=== PATIENT | male | born 1970 | race African-American/Black ===

== ENCOUNTER 2017-09-25 18:51 | Inpatient (IN) ==
[2017-09-25] MEDS ORDERED: *HR* HYDROmorphone (PF) 1 MG/ML SYRINGE IVP ONE (19:02)
[2017-09-25] MEDS ORDERED: 0.9 % Sodium Chloride 1,000 ML IVC ONE (19:02)
[2017-09-25] MEDS ORDERED: Ondansetron 4 MG/2 ML VIAL IVP ONE (19:02)
[2017-09-25] MEDS ORDERED: 0.9 % Sodium Chloride 1,000 ML ONE (19:05)
[2017-09-25] MEDS ORDERED: Ondansetron 4 MG/2 ML VIAL ONE (19:05)
[2017-09-25] MEDS ORDERED: *HR* HYDROmorphone 2 MG/ML SYRINGE ONE (19:05)
--- NOTE | 2017-09-25 19:05 | Emergency Department Note ---
Disposition Clinical Impression: DKA (diabetic ketoacidoses) Qualifiers: Diabetes mellitus type: type 1 Diabetes mellitus complication detail: without coma Qualified Code(s): E10.10 - Type 1 diabetes mellitus with ketoacidosis without coma Disposition: Admitted As Inpatient Condition: Serious Referrals: NONE,PCP [Primary Care Provider] - Forms: ED Satisfaction Letter, Work/School Release Time of Disposition: 23:05 Abdominal Pain HPI - General Chief Complaint: ED Abdominal Pain Stated Complaint: upper abd pain, [place] Time Seen by Provider: 09/25/17 19:00 Source: patient Mode of arrival: ambulatory Limitations: no limitations Nursing Notes Reviewed: Yes Vital Signs Reviewed: Yes - History of Present Illness HPI Narrative: 46-year-old with a recent history of vomiting and severe right flank pain. States he's not able to keep anything down and when he eats or drinks anything and comes right back up. Pt Subjective Complaint: abdominal pain, flank pain Onset (ago): Just [employer] Consistency: constant Location: R flank Pain Severity: moderate, severe Pain Scale: 10 Quality: stabbing, aching Radiation: none Migration to: no migration Worsens with: eating Associated symptoms: Reports: nausea, vomiting. Denies: fever, chills - Related Data Home Medications Medication Instructions Recorded Confirmed Glyburide 09/05/17 Insulin. 09/05/17 Lamictal 09/05/17 Metformin HCl 09/05/17 Remeron 09/05/17 Vistaril 09/05/17 Zoloft 09/05/17 Previous Rx's Medication Instructions Recorded Clotrimazole [Itch Relief] 1 gm TP BID #15 cream..g. 09/05/17 Fluconazole [Diflucan] 150 mg PO Q3D #2 tab 09/05/17 Allergies Allergy/AdvReac Type Severity Reaction Status Date / Time No Known Allergies Allergy Verified 09/25/17 18:57 All systems ED: reviewed and negative except as stated. Constitutional: Denies: fever, chills, weakness, weight change Eyes: Denies: eye pain, eye discharge, vision change ENT ED: Denies: ear pain, throat pain, dental pain, hearing loss, epistaxis, congestion, dysphagia Cardiovascular: Denies: chest pain, palpitations, dyspnea on exertion, edema, syncope Respiratory: Denies: cough, dyspnea, wheezes, hemoptysis, stridor Gastrointestinal: Reports: abdominal pain, nausea, vomiting. Denies: diarrhea, constipation, hematemesis, melena, hematochezia Genitourinary: Denies: urgency, dysuria, frequency, hematuria Musculoskeletal: Denies: back pain, neck pain, arthralgia, myalgia Integumentary: Denies: rash, abrasion, lesions Neurological: Denies: headache, weakness, numbness, paresthesias, confusion, abnormal gait, vertigo Psychiatric: Denies: anxiety, depression, suicidal thoughts, homicidal thoughts , auditory hallucinations, visual hallucinations Endocrine: Denies: fatigue Hematological/Lymphatic: Denies: easy bleeding, easy bruising Allergic/Immunologic: Denies: facial swelling, urticaria Abdominal Pain PMH - Past Medical History Medical history: Reports: non-contributory, diabetes, other Male Surgical History: Reports: no surgical history Psychiatric history: Reports: anxiety, depression, panic disorder - Social History Smoking status: Current some day smoker Alcohol use: Reports: occasionally Drug use: Reports: none Physical Exam - General Limitations: no limitations General appearance: alert, in no apparent distress, anxious - Head Head exam: atraumatic, normocephalic, normal inspection - Eye Eye exam: Present: normal appearance, PERRL, EOMI - ENT ENT exam: normal exam, normal oropharynx, mucous membranes moist - Neck Neck exam: Present: normal inspection, full ROM, trachea midline - Chest Chest inspection: Present: normal inspection, symmetric chest wall rise - Respiratory Respiratory exam: Present: normal lung sounds bilaterally - Cardiovascular Cardiovascular exam: Present: regular rate, normal rhythm, normal heart sounds - Abdominal Exam Abdominal exam: Present: soft, Non-Tender, other (No right upper quadrant tenderness) - Extremities Exam Extremities exam: Present: normal inspection, full ROM. Absent: tenderness, pedal edema - Expanded Lower Extremity Exam Neurovascular/Tendon exam: Present: normal capillary refill - Back Exam Back exam: Present: normal inspection, full ROM. Absent: tenderness - Neurological Exam Neurological exam: Present: alert, oriented X3 - Psychiatric Psychiatric exam: Present: normal affect, normal mood - Skin Skin exam: Present: warm, dry, intact, normal color Course - Reevaluation(s) Reevaluation #1: A 46-year-old with a history of diabetes who comes in with nausea vomiting not able to keep anything down. Workup shows that he is in DKA. Patient will be admitted for further evaluation and treatment. Time: 23:05 - Consultations Consultation #1: Discussed with Dr. Garcia, admit. Time: 23:06 Vital Signs Temperature 96.9 F L 09/25/17 18:55 Pulse Rate 120 09/25/17 18:55 Respiratory Rate 24 09/25/17 18:55 Blood Pressure 145/89 09/25/17 18:55 O2 Sat by Pulse Oximetry 100 09/25/17 18:55 Temperature 96.9 F L 09/25/17 18:55 Pulse Rate 102 09/25/17 22:35 Respiratory Rate 22 09/25/17 22:35 Blood Pressure 156/83 09/25/17 22:35 O2 Sat by Pulse Oximetry 99 09/25/17 22:35 Oxygen Delivery Oxygen Delivery Room Air Abdominal Pain - Lab Data Result diagrams: 09/25/17 19:46 09/25/17 19:35 Lab Results 09/25/17 09/25/17 09/25/17 Range/Units 19:35 19:35 19:35 WBC (4.3-11.1) K/mcL RBC (4.19-5.50) M/mcL Hgb (12.9-16.9) g/dL Hct (37.5-50.1) % MCV (83.0-100.0) fL MCH (28.0-33.3) pg MCHC (31.6-35.5) g/dL RDW (11.5-14.5) % Plt Count (140-400) K/mcL MPV (9.4-12.4) fL Immature Gran % (0-4) % Seg Neutrophils % % Lymphocytes % % Monocytes % % Eosinophils % % Basophils % % Neutrophils # (1.6-8.9) K/mcL Lymphocytes # (0.6-4.6) K/mcL Monocytes # (0.0-1.3) K/mcL Eosinophils # (0.0-0.6) K/mcL Basophils # (0.0-0.2) K/mcL Sodium 128 L (136-145) mEq/L Potassium 5.3 H (3.5-5.1) mEq/L Chloride 93 L (98-107) mEq/L Carbon Dioxide 7 L* (23-29) mEq/L BUN 22 H (6-20) mg/dL Creatinine 2.06 H (0.70-1.30) mg/dL Est GFR ( Amer) 42 L (> 60) Est GFR (Non-Af Amer) 35 L (> 60) BUN/Creatinine Ratio 11 (6-26) Glucose 545 H* (70-105) mg/dL POC Glucose (58-89) Calculated Osmolality 294 (280-300) Lactic Acid (0.5-2.2) mmol/L Calcium 9.8 (8.6-10.3) mg/dL Total Bilirubin 0.5 (0.3-1.0) mg/dL Direct Bilirubin 0.1 (0.0-0.2) mg/dL Indirect Bilirubin 0.4 (0.0-1.2) mg/dL AST 9 L (13-39) Units/L ALT 11 (7-52) Units/L Alkaline Phosphatase 126 H (34-104) Units/L Troponin I < 0.03 (< 0.04) ng/mL Serum Total Protein 8.0 (6.4-8.9) g/dL Albumin 5.2 (3.5-5.7) g/dL Globulin 2.8 (2.4-3.5) g/dL Albumin/Globulin Ratio 1.9 (1.1-2.2) Amylase 55 (29-103) Units/L Lipase 94 H (11-82) Units/L Beta-Hydroxybutyric Acd > 2.00 H (0.02-0.27) mmol/L Urine Color (Yellow) Urine Clarity (Clear) Urine pH (5.0-8.0) pH Units Ur Specific [place] (1.010-1.025) Urine Protein (Neg-Trace) mg/dL Urine Glucose (UA) (Normal) mg/dL Urine Ketones (Negative) mg/dL Urine Blood (Negative) Urine Nitrite (Negative) Urine Bilirubin (Negative) Urine Urobilinogen (Normal) mg/dL Ur Leukocyte Esterase (Negative) Urine Microscopic WBC (0-3) per hpf Ur Squamous Epith Cells (None-Few) per lpf Amorphous Sediment (Few) Hyaline Casts (None-Few) per lpf Ur Culture Indicated? (NO) 09/25/17 09/25/17 09/25/17 Range/Units 19:46 19:46 19:56 WBC 20.5 H (4.3-11.1) K/mcL RBC 6.43 H (4.19-5.50) M/mcL Hgb 19.2 H (12.9-16.9) g/dL Hct 56.2 H (37.5-50.1) % MCV 87.4 (83.0-100.0) fL MCH 29.9 (28.0-33.3) pg MCHC 34.2 (31.6-35.5) g/dL RDW 12.2 (11.5-14.5) % Plt Count 441 H (140-400) K/mcL MPV 11.4 (9.4-12.4) fL Immature Gran % 0.6 (0-4) % Seg Neutrophils % 90.9 % Lymphocytes % 5.8 % Monocytes % 2.6 % Eosinophils % 0.0 % Basophils % 0.1 % Neutrophils # 18.6 H (1.6-8.9) K/mcL Lymphocytes # 1.2 (0.6-4.6) K/mcL Monocytes # 0.5 (0.0-1.3) K/mcL Eosinophils # 0.0 (0.0-0.6) K/mcL Basophils # 0.0 (0.0-0.2) K/mcL Sodium (136-145) mEq/L Potassium (3.5-5.1) mEq/L Chloride (98-107) mEq/L Carbon Dioxide (23-29) mEq/L BUN (6-20) mg/dL Creatinine (0.70-1.30) mg/dL Est GFR ( Amer) (> 60) Est GFR (Non-Af Amer) (> 60) BUN/Creatinine Ratio (6-26) Glucose (70-105) mg/dL POC Glucose 522 H* (58-89) Calculated Osmolality (280-300) Lactic Acid 3.2 H (0.5-2.2) mmol/L Calcium (8.6-10.3) mg/dL Total Bilirubin (0.3-1.0) mg/dL Direct Bilirubin (0.0-0.2) mg/dL Indirect Bilirubin (0.0-1.2) mg/dL AST (13-39) Units/L ALT (7-52) Units/L Alkaline Phosphatase (34-104) Units/L Troponin I (< 0.04) ng/mL Serum Total Protein (6.4-8.9) g/dL Albumin (3.5-5.7) g/dL Globulin (2.4-3.5) g/dL Albumin/Globulin Ratio (1.1-2.2) Amylase (29-103) Units/L Lipase (11-82) Units/L Beta-Hydroxybutyric Acd (0.02-0.27) mmol/L Urine Color (Yellow) Urine Clarity (Clear) Urine pH (5.0-8.0) pH Units Ur Specific [place] (1.010-1.025) Urine Protein (Neg-Trace) mg/dL Urine Glucose (UA) (Normal) mg/dL Urine Ketones (Negative) mg/dL Urine Blood (Negative) Urine Nitrite (Negative) Urine Bilirubin (Negative) Urine Urobilinogen (Normal) mg/dL Ur Leukocyte Esterase (Negative) Urine Microscopic WBC (0-3) per hpf Ur Squamous Epith Cells (None-Few) per lpf Amorphous Sediment (Few) Hyaline Casts (None-Few) per lpf Ur Culture Indicated? (NO) 09/25/17 09/25/17 09/25/17 Range/Units 19:57 21:08 22:21 WBC (4.3-11.1) K/mcL RBC (4.19-5.50) M/mcL Hgb (12.9-16.9) g/dL Hct (37.5-50.1) % MCV (83.0-100.0) fL MCH (28.0-33.3) pg MCHC (31.6-35.5) g/dL RDW (11.5-14.5) % Plt Count (140-400) K/mcL MPV (9.4-12.4) fL Immature Gran % (0-4) % Seg Neutrophils % % Lymphocytes % % Monocytes % % Eosinophils % % Basophils % % Neutrophils # (1.6-8.9) K/mcL Lymphocytes # (0.6-4.6) K/mcL Monocytes # (0.0-1.3) K/mcL Eosinophils # (0.0-0.6) K/mcL Basophils # (0.0-0.2) K/mcL Sodium (136-145) mEq/L Potassium (3.5-5.1) mEq/L Chloride (98-107) mEq/L Carbon Dioxide (23-29) mEq/L BUN (6-20) mg/dL Creatinine (0.70-1.30) mg/dL Est GFR ( Amer) (> 60) Est GFR (Non-Af Amer) (> 60) BUN/Creatinine Ratio (6-26) Glucose (70-105) mg/dL POC Glucose 534 H* 460 H* (58-89) Calculated Osmolality (280-300) Lactic Acid (0.5-2.2) mmol/L Calcium (8.6-10.3) mg/dL Total Bilirubin (0.3-1.0) mg/dL Direct Bilirubin (0.0-0.2) mg/dL Indirect Bilirubin (0.0-1.2) mg/dL AST (13-39) Units/L ALT (7-52) Units/L Alkaline Phosphatase (34-104) Units/L Troponin I (< 0.04) ng/mL Serum Total Protein (6.4-8.9) g/dL Albumin (3.5-5.7) g/dL Globulin (2.4-3.5) g/dL Albumin/Globulin Ratio (1.1-2.2) Amylase (29-103) Units/L Lipase (11-82) Units/L Beta-Hydroxybutyric Acd (0.02-0.27) mmol/L Urine Color Yellow (Yellow) Urine Clarity Clear (Clear) Urine pH 5.5 (5.0-8.0) pH Units Ur Specific [place] > 1.030 H (1.010-1.025) Urine Protein 30 H (Neg-Trace) mg/dL Urine Glucose (UA) >=1000 H (Normal) mg/dL Urine Ketones 80 H (Negative) mg/dL Urine Blood Trace H (Negative) Urine Nitrite Negative (Negative) Urine Bilirubin Negative (Negative) Urine Urobilinogen Normal (Normal) mg/dL Ur Leukocyte Esterase Negative (Negative) Urine Microscopic WBC 0-3 (0-3) per hpf Ur Squamous Epith Cells Few (None-Few) per lpf Amorphous Sediment Few (Few) Hyaline Casts Few (None-Few) per lpf Ur Culture Indicated? NO (NO) - EKG Data EKG attestation: Yes I reviewed and interpreted this EKG. EKG shows normal: sinus rhythm Rate: tachycardia (103) Rhythm: NSR Interpretation: no acute changes
[2017-09-25 19:55] LABS: Basophils % 0.1 %; Hemoglobin 19.2 g/dL (12.9-16.9); Immature Granulocytes % 0.6 % (0-4); Lymphocytes # 1.2 K/mcL (0.6-4.6); Lymphocytes % 5.8 %; Mean Corpuscular HGB Conc 34.2 g/dL (31.6-35.5); Mean Corpuscular Hemoglobin 29.9 pg (28.0-33.3); Mean Corpuscular Volume 87.4 fL (83.0-100.0); Mean Platelet Volume 11.4 fL (9.4-12.4); Monocytes # 0.5 K/mcL (0.0-1.3); Monocytes % 2.6 %; Neutrophils # 18.6 K/mcL (1.6-8.9); Platelet Count 441 K/mcL (140-400); Red Blood Count 6.43 M/mcL (4.19-5.50); Red Cell Distribution Width 12.2 % (11.5-14.5); Segmented Neutrophils % 90.9 %
[2017-09-25 20:06] LABS: Hematocrit 56.2 % (37.5-50.1)
[2017-09-25 20:24] LABS: Albumin 5.2 g/dL (3.5-5.7); Albumin/Globulin Ratio 1.9 (1.1-2.2); Bilirubin,Direct 0.1 mg/dL (0.0-0.2); Bilirubin,Indirect 0.4 mg/dL (0.0-1.2); Bilirubin,Total 0.5 mg/dL (0.3-1.0); Calcium 9.8 mg/dL (8.6-10.3); Globulin 2.8 g/dL (2.4-3.5); Potassium 5.3 mEq/L (3.5-5.1)
[2017-09-25] MEDS ORDERED: Insulin Human Regular 100 UNIT in 0.9 % Sodium Chloride 100 ML IVC SCH (20:45)
[2017-09-25] MEDS ORDERED: *HR* Dextrose 50 % in Water (Syg) 50 ML SYRINGE IVP PRN (20:45)
[2017-09-25 21:20] LABS: Bilirubin,Urine Negative (Negative); Blood,Urine Trace (Negative); Clarity,Urine Clear (Clear); Color,Urine Yellow (Yellow); Glucose,Urine (UA) >=1000 mg/dL (Normal); Ketones,Urine 80 mg/dL (Negative); Leukocyte Esterase,Urine Negative (Negative); Nitrite,Urine Negative (Negative); PH,Urine 5.5 pH Units (5.0-8.0); Protein,Urine 30 mg/dL (Neg-Trace); Specific Gravity,Urine > 1.030 (1.010-1.025); Urobilinogen,Urine Normal (Normal)
[2017-09-25 22:02] LABS: Hyaline Casts,Urine Few per lpf (None-Few); Squamous Epithelial Cell,Urine Few per lpf (None-Few)
[2017-09-25 22:03] LABS: Amorphous Sediment,Urine Few (Few); WBC,Urine 0-3 per hpf (0-3)
[2017-09-26] MEDS ORDERED: *HR* Morphine 2 MG/ML SYRINGE IVP PRN ×2 (00:18)
[2017-09-26] MEDS ORDERED: Ipratropium/Albuterol Neb 3 ML IH PRN (00:18)
[2017-09-26] MEDS ORDERED: Acetaminophen 325 MG TABLET PO PRN (00:18)
[2017-09-26] MEDS ORDERED: D5% in 0.45% NACL 1,000 ML IVC PRN (00:20)
[2017-09-26] MEDS ORDERED: Naloxone 0.4 MG/ML INJ IVP PRN (00:20)
[2017-09-26] MEDS ORDERED: Ondansetron 4 MG/2 ML VIAL IVP PRN (00:20)
[2017-09-26] MEDS ORDERED: 0.9 % Sodium Chloride 1,000 ML IVC SCH (00:30)
--- NOTE | 2017-09-26 00:33 | Internal Med History&Physical ---
Date of Encounter: 09/26/17 Time of Encounter: 00:30 Assessment and Plan (1) DKA (diabetic ketoacidoses) Current visit: Yes Status: Acute Severe diabetic ketoacidosis secondary to possibly acute bacterial bronchitis Start insulin drip, ordered venous pH, basic metabolic panels every 4 hours Aggressive hydration, switch to D5 with health normal saline and potassium once glucose is less than 200 Rocephin Protonix 40 GI prophylaxis and subcutaneous heparin for DVT prophylaxis. The patient will be admitted as inpatient, expected to stay more than 2 minutes. Full code. Time spent on this admission 40 minutes. High risk due to DKA Qualifiers: Diabetes mellitus type: type 1 Diabetes mellitus complication detail: without coma Qualified Code(s): E10.10 - Type 1 diabetes mellitus with ketoacidosis without coma (2) Acute renal failure Current visit: Yes Status: Acute Secondary to dehydration this Continue fluids Qualifiers: Acute renal failure type: unspecified Qualified Code(s): N17.9 - Acute kidney failure, unspecified (3) Dehydration Current visit: Yes Status: Acute (4) Acute bronchitis Current visit: Yes Status: Acute Likely bacterial Continue Rocephin Qualifiers: Bronchitis organism: unspecified organism Qualified Code(s): J20.9 - Acute bronchitis, unspecified (5) Tobacco abuse Current visit: Yes Status: Acute Smoking cessation counseling given for 5 minutes, nicotine patch (6) Hyponatremia Current visit: Yes Status: Acute Monitor sodium Internal Medicine - H&P: HPI Chief complaint: Abdominal pain History of present illness: Mr. Lawson is a 46 year old male with a past medical history of diabetes type 1 diagnosed 18 months ago, tobacco use, depression, came complaining of constant vomiting for the past 3 days, not been able to keep anything down. Complaining also of right flank pain. CT scan of the abdomen showed cholelithiasis with no obstruction and pulmonary nodules that need to be followed as an outpatient. Blood cell count is 20.5 heart rate 106 hemoglobin has increased up to 19.2 from a baseline of 15.3. Platelets 441. Patient has been complaining of severe heartburn 6 out of 10 in intensity with no radiation. Sodium is 128 potassium 5.3 CO2 7 anion gap 28, creatinine has increased to 2.06 from a baseline of 1.15. Glucose was 545. Very dehydrated, denies any fevers, or dysuria but complains of a constant cough with greenish phlegm, no sick contacts. Past Med Surg Social Fam HX - Past Medical History Medical history: diabetes (Type I diagnosed 18 months ago), hypertension, other (Panic disorder, tobacco abuse, skin fungal infection) Psychiatric history: anxiety, depression, panic disorder - Past Surgical History Surgical History: no surgical history - Social History Smoking Status: Current some day smoker Packs per day: One pack per day Smokeless Tobacco Status: No Alcohol use: occasionally Drug use: none - Additional Family History Additional family history: Mother with diabetes Internal Medicine - H&P: Meds Clotrimazole [Itch Relief] 1 gm TP BID #15 cream..g. 09/05/17 [Rx] Fluconazole [Diflucan] 150 mg PO Q3D #2 tab 09/05/17 [Rx] Glyburide 09/05/17 [History] Insulin. 09/05/17 [History] Lamictal 09/05/17 [History] Metformin HCl 09/05/17 [History] Remeron 09/05/17 [History] Vistaril 09/05/17 [History] Zoloft 09/05/17 [History] 3 Allergy/AdvReac Type Severity Reaction Status Date / Time No Known Allergies Allergy Verified 09/25/17 18:57 All Systems PM: A 10-system review of systems was performed and is negative for pertinent findings except as documented above in the HPI. Review of systems: Productive cough and weakness, other systems of the 10 review of her negative, no diarrhea - Constitutional Vitals: Temp Pulse Resp BP Pulse Ox 96.9 F L 106 18 142/58 98 09/25/17 18:55 09/25/17 23:48 09/26/17 00:15 09/26/17 00:15 09/25/17 23:48 General appearance: Present: A&O X 3 (Dehydration, dry mucosa) - Head Head exam: Present: atraumatic, normocephalic - Eye Eye exam: Present: PERRL, conjuntiva pink, sclera anicteric Pupils: Present: PERRL - Neck Neck exam general surgery: Present: supple, trachea midline. Absent: lymphadenopathy - Respiratory Respiratory exam: Present: CTAB. Absent: accessory muscle use, rales, rhonchi, wheezes - Cardiovascular Cardiovascular exam: Present: RRR, +S1, +S2, tachycardia. Absent: diastolic murmur, gallop, rubs, systolic murmur - GI/Abdominal GI/Abdominal exam: Present: normal bowel sounds, soft, no peritoneal signs. Absent: distended, tenderness - Extremities Exam Extremities exam: Present: warm, radial pulses palpable and symmetrical. Absent : calf tenderness, cyanotic, pedal edema - Neurological Exam Neurological exam: Present: CN II-XII intact, oriented X3, no focal deficits. Absent: pronater drift, facial droop, speech deficit - Skin Skin exam: Present: dry, intact Internal Med - H&P Results - Labs CBC & Chem 7: 09/25/17 19:46 09/25/17 19:35 Labs: Short CBC 09/25/17 Range/Units 19:46 WBC 20.5 H (4.3-11.1) K/mcL Hgb 19.2 H (12.9-16.9) g/dL Hct 56.2 H (37.5-50.1) % Plt Count 441 H (140-400) K/mcL Neutrophils # 18.6 H (1.6-8.9) K/mcL BMP 09/25/17 19:35 Sodium 128 L Potassium 5.3 H Chloride 93 L Carbon Dioxide 7 L* BUN 22 H Creatinine 2.06 H Glucose 545 H* Calcium 9.8 Cardiac Enzymes 09/25/17 Range/Units 19:35 Troponin I < 0.03 (< 0.04) ng/mL Liver Function 09/25/17 Range/Units 19:35 Total Bilirubin 0.5 (0.3-1.0) mg/dL Direct Bilirubin 0.1 (0.0-0.2) mg/dL AST 9 L (13-39) Units/L ALT 11 (7-52) Units/L Alkaline Phosphatase 126 H (34-104) Units/L Albumin 5.2 (3.5-5.7) g/dL Urine 09/25/17 Range/Units 21:08 Urine Color Yellow (Yellow) Urine Clarity Clear (Clear) Urine pH 5.5 (5.0-8.0) pH Units Ur Specific [place] > 1.030 H (1.010-1.025) Urine Protein 30 H (Neg-Trace) mg/dL Urine Glucose (UA) >=1000 H (Normal) mg/dL - Impressions ITS Impressions Abdomen/Pelvis CT 09/25/17 19:03 IMPRESSION: Cholelithiasis. Otherwise negative noncontrast study of the abdomen and pelvis. A few noncalcified bibasilar pulmonary nodules measuring up to 3 mm. RECOMMENDATIONS: Guidelines for follow-up and management of pulmonary nodules found on abdomen CT: <6 mm - No follow up recommend on the basis of the estimated low risk of malignancy. 6-8-mm - recommend follow-up chest CT after an appropriate interval (3-12 months depending on clinical risk). >8mm - immediate chest CT for further evaluation. Radiology 2017 http://pubs.rsna.org/doi/full/[email or web address] D/ / Barb Cheng Cha, MD / Barb Cheng Cha, MD Interpreting Provider: Barb Cheng Cha, MD Chest X-Ray 09/25/17 20:47 IMPRESSION: Negative portable study. D/ / Barb Cheng Cha, MD / Barb Cheng Cha, MD Interpreting Provider: Barb Cheng Cha, MD
[2017-09-26] MEDS ORDERED: cefTRIAXone 1,000 MG in Water for inj. (sterile) 10 ML IVPB SCH (01:00)
[2017-09-26 01:09] LABS: Hematocrit 53.1 % (37.5-50.1); Hemoglobin 18.2 g/dL (12.9-16.9); Mean Corpuscular HGB Conc 34.3 g/dL (31.6-35.5); Mean Corpuscular Volume 87.5 fL (83.0-100.0); Mean Platelet Volume 11.2 fL (9.4-12.4); Platelet Count 399 K/mcL (140-400); Red Blood Count 6.07 M/mcL (4.19-5.50); Red Cell Distribution Width 12.2 % (11.5-14.5)
[2017-09-26 01:17] LABS: VBG HCO3 10 mEq/L (21-27); VBG PCO2 29 mmHg (41-51); VBG PH 7.14 pH Units (7.32-7.42); VBG PO2 38 mmHg (25-50)
[2017-09-26 01:31] LABS: Calcium 8.6 mg/dL (8.6-10.3); Magnesium 2.1 mg/dL (1.6-2.6); Potassium 4.5 mEq/L (3.5-5.1)
[2017-09-26] MEDS: Pantoprazole 40 MG VIAL IVP SCH ×2 (02:18→10:58)
[2017-09-26] MEDS: Nicotine 21 MG PATCH.TD24 TD SCH ×2 (02:19→10:26)
[2017-09-26] MEDS: 0.9 % Sodium Chloride w KCl 20 MEQ/1,000 ML MLS IVC SCH ×2 (02:22→11:05)
[2017-09-26] MEDS: Insulin Human Regular 100 UNIT in 0.9 % Sodium Chloride 100 ML IVC SCH ×3 (03:20→16:17)
[2017-09-26 04:57] LABS: VBG HCO3 14 mEq/L (21-27); VBG PCO2 31 mmHg (41-51); VBG PH 7.26 pH Units (7.32-7.42); VBG PO2 53 mmHg (25-50)
[2017-09-26] MEDS: *HR* Heparin 5,000 UNIT/ML VIAL SQ SCH ×3 (05:12→20:49)
[2017-09-26] MEDS: D5% in 0.45% NACL w KCl 20 MEQ/1,000 ML MLS IVC PRN ×3 (05:12→11:05)
[2017-09-26 05:19] LABS: BUN/Creatinine Ratio 14 (6-26); Blood Urea Nitrogen 19 mg/dL (6-20); Calcium 8.8 mg/dL (8.6-10.3); Carbon Dioxide 14 mEq/L (23-29); Chloride 107 mEq/L (98-107); Glucose 179 mg/dL (70-105); Osmolality,Calculated 285 (280-300); Potassium 3.8 mEq/L (3.5-5.1); Sodium 134 mEq/L (136-145); eGFR For African Americans > 60 (> 60); eGFR For Non-African Americans 55 (> 60)
[2017-09-26] MEDS ORDERED: Insulin Human Regular 100 UNIT in 0.9 % Sodium Chloride 100 ML IVC SCH (08:15)
[2017-09-26 08:52] LABS: VBG HCO3 16 mEq/L (21-27); VBG PCO2 35 mmHg (41-51); VBG PH 7.27 pH Units (7.32-7.42); VBG PO2 54 mmHg (25-50)
[2017-09-26 08:58] LABS: BUN/Creatinine Ratio 13 (6-26); Blood Urea Nitrogen 17 mg/dL (6-20); Calcium 8.8 mg/dL (8.6-10.3); Carbon Dioxide 15 mEq/L (23-29); Chloride 104 mEq/L (98-107); Glucose 272 mg/dL (70-105); Osmolality,Calculated 281 (280-300); Potassium 3.8 mEq/L (3.5-5.1); Sodium 130 mEq/L (136-145); eGFR For African Americans > 60 (> 60); eGFR For Non-African Americans 60 (> 60)
[2017-09-26] MEDS ORDERED: FLUARIX QUAD 2017-18 36MOS UP/PF 0.5 ML SYRINGE IM ONE (09:00)
[2017-09-26] MEDS ORDERED: hydrOXYzine pamoate 25 MG CAPSULE PO PRN (14:00)
[2017-09-26 14:44] LABS: BUN/Creatinine Ratio 13 (6-26); Blood Urea Nitrogen 15 mg/dL (6-20); Calcium 8.7 mg/dL (8.6-10.3); Carbon Dioxide 17 mEq/L (23-29); Chloride 109 mEq/L (98-107); Glucose 90 mg/dL (70-105); Osmolality,Calculated 276 (280-300); Potassium 3.4 mEq/L (3.5-5.1); Sodium 133 mEq/L (136-145); eGFR For African Americans > 60 (> 60); eGFR For Non-African Americans > 60 (> 60)
[2017-09-26] MEDS ORDERED: *HR* Dextrose 50 % in Water (Syg) 50 ML SYRINGE IVP PRN (14:58)
[2017-09-26] MEDS ORDERED: Dextrose Gel 15 GM/37.5 ML TUBE PO PRN ×2 (14:58)
[2017-09-26] MEDS ORDERED: D5% in Water 1,000 ML IVC PRN (14:58)
[2017-09-26] MEDS: Insulin DETEMIR 100 UNIT/ML X5UNITS SQ SCH ×2 (16:23→20:49)
[2017-09-26] MEDS: Insulin LISPRO 300 UNITS/3 ML VIAL SQ SCH (16:25)
--- NOTE | 2017-09-26 19:12 | Event Note ---
Date of Encounter: 09/26/17 Time of Encounter: 11:00 DKA has resolved and patient has been started on long-acting insulin. Diet advance to clear liquids for pancreatitis
[2017-09-26] MEDS ORDERED: cefTRIAXone 1,000 MG in Water for inj. (sterile) 10 ML IVP SCH (21:00)
[2017-09-26] MEDS ORDERED: Insulin LISPRO 300 UNITS/3 ML VIAL SQ SCH (21:00)
[2017-09-26] MEDS ORDERED: Mirtazapine 15 MG TABLET PO SCH (21:00)
[2017-09-26] MEDS ORDERED: cefTRIAXone 1,000 MG in Water for inj. (sterile) 20 ML 10 ML IVP SCH (22:00)
[2017-09-27] MEDS: *HR* Heparin 5,000 UNIT/ML VIAL SQ SCH ×2 (06:25→13:53)
[2017-09-27] MEDS: Nicotine 21 MG PATCH.TD24 TD SCH (07:54)
[2017-09-27] MEDS: Pantoprazole 40 MG VIAL IVP SCH (07:54)
[2017-09-27] MEDS: Insulin LISPRO 300 UNITS/3 ML VIAL SQ SCH ×3 (07:56→17:31)
[2017-09-27] MEDS ORDERED: lamoTRIgine 100 MG TABLET PO SCH (09:00)
[2017-09-27] MEDS: Insulin DETEMIR 100 UNIT/ML X5UNITS SQ SCH (09:43)
[2017-09-27 09:50] LABS: Basophils # 0.1 K/mcL (0.0-0.2); Basophils % 0.4 %; Eosinophils # 0.2 K/mcL (0.0-0.6); Eosinophils % 1.6 %; Hematocrit 46.1 % (37.5-50.1); Immature Granulocytes % 0.2 % (0-4); Lymphocytes # 4.3 K/mcL (0.6-4.6); Lymphocytes % 34.3 %; Mean Corpuscular HGB Conc 34.9 g/dL (31.6-35.5); Mean Corpuscular Hemoglobin 29.5 pg (28.0-33.3); Mean Corpuscular Volume 84.6 fL (83.0-100.0); Mean Platelet Volume 11.4 fL (9.4-12.4); Monocytes # 0.8 K/mcL (0.0-1.3); Monocytes % 6.4 %; Neutrophils # 7.2 K/mcL (1.6-8.9); Platelet Count 336 K/mcL (140-400); Red Blood Count 5.45 M/mcL (4.19-5.50); Red Cell Distribution Width 12.6 % (11.5-14.5); Segmented Neutrophils % 57.1 %
[2017-09-27] MEDS ORDERED: Mag Hydrox/Al Hydrox/Simeth 30 ML UDC PO PRN (09:56)
--- NOTE | 2017-09-27 10:25 | Electrocardiograph Report ---
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
[2017-09-27 10:27] LABS: Hemoglobin 16.1 g/dL (12.9-16.9)
[2017-09-27 11:06] LABS: BUN/Creatinine Ratio 9 (6-26); Blood Urea Nitrogen 11 mg/dL (6-20); Calcium 9.1 mg/dL (8.6-10.3); Carbon Dioxide 20 mEq/L (23-29); Chloride 102 mEq/L (98-107); Glucose 338 mg/dL (70-105); Osmolality,Calculated 285 (280-300); Potassium 3.8 mEq/L (3.5-5.1); Sodium 131 mEq/L (136-145); eGFR For African Americans > 60 (> 60); eGFR For Non-African Americans > 60 (> 60)
--- NOTE | 2017-09-27 15:17 | Discharge Summary ---
Date of Encounter: 09/27/17 Time of Encounter: 11:00 - Discharge Diagnosis (1) DKA (diabetic ketoacidoses) Priority: Primary Status: Acute Qualifiers: Diabetes mellitus type: type 1 Diabetes mellitus complication detail: without coma Qualified Code(s): E10.10 - Type 1 diabetes mellitus with ketoacidosis without coma (2) Acute renal failure Priority: Secondary Status: Acute Qualifiers: Acute renal failure type: unspecified Qualified Code(s): N17.9 - Acute kidney failure, unspecified - Discharge Medications Prescriptions: Glimepiride [Amaryl] 1 mg PO DAILY #30 tablet Insulin DETEMIR [Levemir] 10 unit SQ BID #30 [id number] Insulin Human Regular [HumuLIN R] 10 unit SQ BID #30 vial metFORMIN [Glucophage] 500 mg PO BIDWM #60 tablet Home Medications: HydrOXYzine Pamoate [Vistaril] 50 mg PO Q6H PRN 09/26/17 [History] Mirtazapine [Remeron] 15 mg PO HS 09/26/17 [History] Sertraline [Zoloft] 100 mg PO DAILY 09/26/17 [History] lamoTRIgine [Lamotrigine] 200 mg PO DAILY 09/26/17 [History] Glimepiride [Amaryl] 1 mg PO DAILY #30 tablet 09/27/17 [Rx] Insulin DETEMIR [Levemir] 10 unit SQ BID #30 [id number] 09/27/17 [Rx] Insulin Human Regular [HumuLIN R] 10 unit SQ BID #30 vial 09/27/17 [Rx] metFORMIN [Glucophage] 500 mg PO BIDWM #60 tablet 09/27/17 [Rx] Allergies/Adverse Reactions: 3 Allergy/AdvReac Type Severity Reaction Status Date / Time No Known Allergies Allergy Verified 09/25/17 18:57 Date of admission: 09/26/17 00:32 Primary care physician: PCP NONE Consults: 09/26/17 10:44 Consult to Gum Machine Operator [CONS] Routine Reason for SW Consult: DC PLANNING. HOMELESS. NEEDS DIABETIC MEDICATIONS AND SUPPLIES. - Patient Status Disposition: Home, Self-Care Condition: Serious - Discharge Instructions Instructions: Diabetes Mellitus Type 2 in Adults (DC) Follow Up With: NONE,PCP [Primary Care Provider] - Hospital course: Patient is a 46-year-old male with past medical history significant for diabetes type 1 diagnosed 18 months ago, tobacco use and depression who presented to the ER on 09/26/17 with nausea/vomiting. Patient reported of constant nausea and vomiting and not being able to keep by mouth down so he decided to come to the ER for evaluation. In the ER, was found to be in DKA in addition to having XIAO. He was admitted for further medical management of DKA. During patients hospital stay, his DKA resolved on insulin drip which was discontinued after starting long-acting insulin. Patient's XIAO also resolved with IV fluids. Patient will be discharged to follow-up with a repeat chest CT in approximate 4- 6 weeks in addition to follow-up with primary care provider. - Time Spent with Patient Total time spent providing and/or coordinating discharge services: Less than 30 minutes - Constitutional Vitals: Temp Pulse Resp BP Pulse Ox 98.3 F 78 18 119/69 97 09/27/17 11:28 09/27/17 11:28 09/27/17 11:28 09/27/17 11:28 09/27/17 11:28 General appearance: Present: A&O X 3 (Dehydration, dry mucosa) - Respiratory Respiratory exam: Present: CTAB. Absent: accessory muscle use, rales, rhonchi, wheezes - Cardiovascular Cardiovascular exam: Present: RRR, +S1, +S2. Absent: diastolic murmur, gallop, rubs, systolic murmur
[2017-09-27 17:08] VITALS: BP 127/82
== END 2017-09-27 20:16 | disposition home or self-care (01) | DRG 420 ==
LOC: EMEROO 18:51 → 2NNU 18:51 → SUATTDRO 09-26 00:32 → 2NNU 09-26 00:51
PROVIDERS: ADMIT Internal Medicine; ATTEND Hospitalist

== ENCOUNTER 2020-01-24 17:42 | Observation (INO) ==
[2020-01-24] MEDS ORDERED: 0.9 % Sodium Chloride 1,000 ML IVC ONE ×2 (19:16→23:32)
[2020-01-24] MEDS ORDERED: Morphine Sulfate 2 MG/ML SYRINGE IVP ONE (19:16)
[2020-01-24] MEDS ORDERED: Piperacillin/Tazobactam 3.375 GM in Water for inj. (sterile) 20 ML IVP ONE (19:17)
[2020-01-24] MEDS ORDERED: Vancomycin 1,500 MG/265 ML IV.SOLN IVPB ONE (19:17)
[2020-01-24] MEDS ORDERED: Isovue-370 500 ML BOTTLE IVP ONE (19:51)
[2020-01-24 19:52] LABS: Basophils # 0.1 K/mcL (0.0-0.2); Basophils % 0.4 %; Eosinophils # 0.4 K/mcL (0.0-0.6); Hematocrit 44.7 % (37.5-50.1); Hemoglobin 14.8 g/dL (12.9-16.9); Immature Granulocytes % 0.4 % (0-4); Lymphocytes # 3.8 K/mcL (0.6-4.6); Lymphocytes % 20.6 %; Mean Corpuscular HGB Conc 33.1 g/dL (31.6-35.5); Mean Corpuscular Hemoglobin 30.3 pg (28.0-33.3); Mean Corpuscular Volume 91.4 fL (83.0-100.0); Monocytes # 1.2 K/mcL (0.0-1.3); Monocytes % 6.3 %; Neutrophils # 12.9 K/mcL (1.6-8.9); Platelet Count 448 K/mcL (140-400); Red Blood Count 4.89 M/mcL (4.19-5.50); Red Cell Distribution Width 12.5 % (11.5-14.5); Segmented Neutrophils % 70.3 %; White Blood Count 18.4 K/mcL (4.3-11.1)
[2020-01-24 19:56] LABS: INR 1.1; Prothrombin Time 12.6 Seconds (9.4-12.1)
[2020-01-24 20:10] LABS: BUN/Creatinine Ratio 9 (6-26); Blood Urea Nitrogen 11 mg/dL (6-20); Calcium 10.2 mg/dL (8.6-10.3); Carbon Dioxide 30 mEq/L (23-29); Chloride 105 mEq/L (98-107); Glucose 122 mg/dL (70-105); Osmolality,Calculated 295 (280-300); Potassium 4.3 mEq/L (3.5-5.1); Sodium 142 mEq/L (136-145); eGFR For African Americans > 60 (> 60); eGFR For Non-African Americans > 60 (> 60)
[2020-01-24] MEDS ORDERED: *HR* HYDROmorphone (PF) 1 MG/ML SYRINGE IVP ONE (20:28)
[2020-01-24] MEDS ORDERED: Ketorolac 15 MG/ML VIAL IVP ONE (20:28)
[2020-01-24] MEDS ORDERED: Nicotine 21 MG PATCH.TD24 TD ONE (21:24)
[2020-01-24] MEDS ORDERED: Naloxone 0.4 MG/ML INJ IVP PRN (23:28)
[2020-01-24] MEDS ORDERED: Ketorolac 30 MG/ML VIAL IVP PRN (23:31)
[2020-01-25] MEDS: Piperacillin/Tazobactam 3.375 GM in 0.9 % Sodium Chloride Mini Bag 100 ML IVPB SCH ×3 (04:31→21:06)
[2020-01-25] MEDS: *HR* Enoxaparin 40 MG/0.4 ML SYRINGE SQ SCH (06:37)
[2020-01-25] MEDS: Vancomycin 1,250 MG/262.5 ML IV.SOLN IVPB SCH ×2 (07:30→19:51)
[2020-01-25] MEDS: lamoTRIgine 100 MG TABLET PO SCH (08:23)
[2020-01-25] MEDS: lisinopriL 20 MG TABLET PO SCH (08:24)
[2020-01-25] MEDS: Divalproex (12 HR) 500 MG TABLET PO SCH ×2 (08:24→21:04)
[2020-01-25] MEDS: Insulin LISPRO 300 UNITS/3 ML VIAL SQ SCH ×4 (08:24→16:34)
[2020-01-25] MEDS: Aspirin Enteric Coated 81 MG Tablet PO SCH (08:24)
[2020-01-25] MEDS: Nicotine 21 MG PATCH.TD24 TD SCH (08:24)
[2020-01-25 09:38] LABS: Basophils # 0.1 K/mcL (0.0-0.2); Basophils % 0.5 %; Eosinophils # 0.4 K/mcL (0.0-0.6); Eosinophils % 2.9 %; Hematocrit 39.2 % (37.5-50.1); Immature Granulocytes % 0.2 % (0-4); Lymphocytes % 23.4 %; Mean Corpuscular HGB Conc 32.9 g/dL (31.6-35.5); Mean Corpuscular Hemoglobin 30.1 pg (28.0-33.3); Mean Corpuscular Volume 91.4 fL (83.0-100.0); Mean Platelet Volume 9.9 fL (9.4-12.4); Monocytes # 0.8 K/mcL (0.0-1.3); Monocytes % 5.9 %; Neutrophils # 8.6 K/mcL (1.6-8.9); Platelet Count 396 K/mcL (140-400); Red Blood Count 4.29 M/mcL (4.19-5.50); Red Cell Distribution Width 12.6 % (11.5-14.5); Segmented Neutrophils % 67.1 %; White Blood Count 12.9 K/mcL (4.3-11.1)
[2020-01-25 09:44] LABS: Hemoglobin 12.9 g/dL (12.9-16.9)
[2020-01-25 09:55] LABS: BUN/Creatinine Ratio 10 (6-26); Blood Urea Nitrogen 12 mg/dL (6-20); Calcium 8.6 mg/dL (8.6-10.3); Carbon Dioxide 26 mEq/L (23-29); Chloride 109 mEq/L (98-107); Glucose 183 mg/dL (70-105); Osmolality,Calculated 290 (280-300); Potassium 3.9 mEq/L (3.5-5.1); Sodium 138 mEq/L (136-145); eGFR For African Americans > 60 (> 60); eGFR For Non-African Americans > 60 (> 60)
[2020-01-25] MEDS: Ketorolac 30 MG/ML VIAL IVP PRN (10:48)
[2020-01-25 11:54] LABS: Estimated Average Glucose 217 mg/dl
[2020-01-25] MEDS: Acetaminophen 325 MG TABLET PO SCH ×2 (12:48→18:24)
[2020-01-25] MEDS ORDERED: *HR* Dextrose 50 % in Water (Syg) 50 ML SYRINGE IVP PRN (12:55)
[2020-01-25] MEDS ORDERED: Dextrose Gel 15 GM/37.5 ML TUBE PO PRN ×2 (12:55)
[2020-01-25] MEDS ORDERED: D5% in Water 1,000 ML IVC PRN (12:55)
[2020-01-25] MEDS: Insulin NPH 100 UNIT/ML (x5UNIT) SQ SCH (21:07)
[2020-01-26] MEDS: Acetaminophen 325 MG TABLET PO SCH ×5 (00:07→23:35)
[2020-01-26] MEDS: Piperacillin/Tazobactam 3.375 GM in 0.9 % Sodium Chloride Mini Bag 100 ML IVPB SCH (04:14)
[2020-01-26] MEDS: Vancomycin 1,250 MG/262.5 ML IV.SOLN IVPB SCH (06:18)
[2020-01-26] MEDS: *HR* Enoxaparin 40 MG/0.4 ML SYRINGE SQ SCH (06:18)
[2020-01-26 06:45] LABS: Basophils # 0.1 K/mcL (0.0-0.2); Basophils % 0.6 %; Eosinophils # 0.5 K/mcL (0.0-0.6); Eosinophils % 4.3 %; Hematocrit 40.9 % (37.5-50.1); Hemoglobin 13.4 g/dL (12.9-16.9); Immature Granulocytes % 0.3 % (0-4); Lymphocytes # 3.9 K/mcL (0.6-4.6); Lymphocytes % 35.3 %; Mean Corpuscular HGB Conc 32.8 g/dL (31.6-35.5); Mean Corpuscular Hemoglobin 30.5 pg (28.0-33.3); Mean Platelet Volume 10.1 fL (9.4-12.4); Monocytes # 0.6 K/mcL (0.0-1.3); Monocytes % 5.6 %; Neutrophils # 5.9 K/mcL (1.6-8.9); Platelet Count 432 K/mcL (140-400); Red Cell Distribution Width 12.6 % (11.5-14.5); Segmented Neutrophils % 53.9 %
[2020-01-26 07:03] LABS: BUN/Creatinine Ratio 12 (6-26); Blood Urea Nitrogen 13 mg/dL (6-20); Calcium 9.1 mg/dL (8.6-10.3); Carbon Dioxide 29 mEq/L (23-29); Chloride 105 mEq/L (98-107); Glucose 150 mg/dL (70-105); Osmolality,Calculated 291 (280-300); Potassium 4.7 mEq/L (3.5-5.1); Sodium 139 mEq/L (136-145); eGFR For African Americans > 60 (> 60); eGFR For Non-African Americans > 60 (> 60)
[2020-01-26] MEDS: Insulin LISPRO 300 UNITS/3 ML VIAL SQ SCH ×6 (07:54→17:39)
[2020-01-26] MEDS: Nicotine 21 MG PATCH.TD24 TD SCH (07:54)
[2020-01-26] MEDS: Aspirin Enteric Coated 81 MG Tablet PO SCH (07:55)
[2020-01-26] MEDS: lamoTRIgine 100 MG TABLET PO SCH (07:55)
[2020-01-26] MEDS: lisinopriL 20 MG TABLET PO SCH (07:55)
[2020-01-26] MEDS: Divalproex (12 HR) 500 MG TABLET PO SCH ×2 (07:55→20:30)
[2020-01-26] MEDS ORDERED: Vancomycin 500 MG in 0.9 % Sodium Chloride Mini Bag 100 ML IVPB ONE (08:22)
[2020-01-26] MEDS ORDERED: Morphine Sulfate 2 MG/ML SYRINGE IVP PRN (14:27)
[2020-01-26] MEDS: Ketorolac 30 MG/ML VIAL IVP PRN ×2 (16:34→22:59)
[2020-01-26] MEDS: Vancomycin 1,500 MG/265 ML IV.SOLN IVPB SCH (17:43)
[2020-01-26] MEDS: Insulin NPH 100 UNIT/ML (x5UNIT) SQ SCH (20:22)
[2020-01-27] MEDS: Acetaminophen 325 MG TABLET PO SCH ×2 (05:39→11:33)
[2020-01-27] MEDS: *HR* Enoxaparin 40 MG/0.4 ML SYRINGE SQ SCH (05:49)
[2020-01-27] MEDS: Vancomycin 1,500 MG/265 ML IV.SOLN IVPB SCH (05:50)
[2020-01-27] MEDS: Ketorolac 30 MG/ML VIAL IVP PRN (05:51)
[2020-01-27] MEDS: Insulin LISPRO 300 UNITS/3 ML VIAL SQ SCH ×4 (07:44→11:32)
[2020-01-27] MEDS: lisinopriL 20 MG TABLET PO SCH (08:10)
[2020-01-27] MEDS: lamoTRIgine 100 MG TABLET PO SCH (08:10)
[2020-01-27] MEDS: Aspirin Enteric Coated 81 MG Tablet PO SCH (08:10)
[2020-01-27] MEDS: Divalproex (12 HR) 500 MG TABLET PO SCH (08:10)
[2020-01-27] MEDS: Nicotine 21 MG PATCH.TD24 TD SCH (08:10)
[2020-01-27 09:01] LABS: Basophils # 0.1 K/mcL (0.0-0.2); Basophils % 0.8 %; Eosinophils # 0.5 K/mcL (0.0-0.6); Eosinophils % 6.1 %; Hematocrit 40.6 % (37.5-50.1); Hemoglobin 13.3 g/dL (12.9-16.9); Immature Granulocytes % 0.3 % (0-4); Lymphocytes # 3.7 K/mcL (0.6-4.6); Lymphocytes % 47.6 %; Mean Corpuscular HGB Conc 32.8 g/dL (31.6-35.5); Mean Corpuscular Hemoglobin 30.2 pg (28.0-33.3); Mean Corpuscular Volume 92.3 fL (83.0-100.0); Monocytes # 0.4 K/mcL (0.0-1.3); Neutrophils # 3.2 K/mcL (1.6-8.9); Platelet Count 444 K/mcL (140-400); Red Cell Distribution Width 12.4 % (11.5-14.5); Segmented Neutrophils % 40.2 %; White Blood Count 7.8 K/mcL (4.3-11.1)
[2020-01-27 09:06] LABS: INR 1.1
[2020-01-27 09:09] LABS: BUN/Creatinine Ratio 11 (6-26); Blood Urea Nitrogen 12 mg/dL (6-20); Calcium 9.1 mg/dL (8.6-10.3); Carbon Dioxide 32 mEq/L (23-29); Chloride 104 mEq/L (98-107); Glucose 143 mg/dL (70-105); Osmolality,Calculated 294 (280-300); Potassium 4.2 mEq/L (3.5-5.1); Sodium 141 mEq/L (136-145); eGFR For African Americans > 60 (> 60); eGFR For Non-African Americans > 60 (> 60)
[2020-01-27 10:53] VITALS: BP 152/88
== END 2020-01-27 12:55 | disposition home or self-care (01) ==
LOC: EMEROOARM 17:42 → 3ANU 17:42 → SUATTDRO 21:50 → 3ANU 22:56
PROVIDERS: ADMIT Internal Medicine; ATTEND Internal Medicine

== ENCOUNTER 2021-04-11 16:03 | Observation (INO) ==
[2021-04-11 16:34] LABS: Basophils % 0.3 %; Eosinophils # 0.2 K/mcL (0.0-0.6); Eosinophils % 1.7 %; Hematocrit 46.5 % (37.5-50.1); Hemoglobin 16.1 g/dL (12.9-16.9); Immature Granulocytes % 0.2 % (0-4); Lymphocytes # 2.2 K/mcL (0.6-4.6); Lymphocytes % 17.2 %; Mean Corpuscular HGB Conc 34.6 g/dL (31.6-35.5); Mean Corpuscular Hemoglobin 31.3 pg (28.0-33.3); Mean Corpuscular Volume 90.3 fL (83.0-100.0); Mean Platelet Volume 10.9 fL (9.4-12.4); Monocytes # 0.5 K/mcL (0.0-1.3); Monocytes % 4.2 %; Neutrophils # 9.9 K/mcL (1.6-8.9); Platelet Count 449 K/mcL (140-400); Red Blood Count 5.15 M/mcL (4.19-5.50); Red Cell Distribution Width 11.9 % (11.5-14.5); Segmented Neutrophils % 76.4 %
[2021-04-11 16:36] LABS: Bilirubin,Urine Negative (Negative); Blood,Urine Negative (Negative); Clarity,Urine Clear (Clear); Color,Urine Colorless (Yellow); Glucose,Urine (UA) >=1000 mg/dL (Normal); Ketones,Urine 40 mg/dL (Negative); Leukocyte Esterase,Urine Negative (Negative); Nitrite,Urine Negative (Negative); PH,Urine 6.5 pH Units (5.0-8.0); Protein,Urine Negative (Neg-Trace); Specific Gravity,Urine > 1.030 (1.010-1.025); Urobilinogen,Urine Normal (Normal); WBC,Urine 0-3 per hpf (0-3)
[2021-04-11 16:49] LABS: Amphetamine Screen,Urine Negative ng/mL (Cutoff=1000); Barbiturate Screen,Urine Negative ng/mL (Cutoff=200); Benzodiazepines Screen,Urine Negative ng/mL (Cutoff=200); Cannabinoid Screen,Urine Negative ng/mL (Cutoff = 50); Cocaine Screen,Urine Positive ng/mL (Cutoff= 300); Opiate Screen,Urine Negative ng/mL (Cutoff=300); Phencyclidine Screen,Urine Negative ng/mL (Cutoff=25)
[2021-04-11 17:01] LABS: Acetaminophen < 10 mcg/mL (10-20); BUN/Creatinine Ratio 12 (6-26); Blood Urea Nitrogen 12 mg/dL (6-20); Carbon Dioxide 24 mEq/L (23-29); Chloride 93 mEq/L (98-107); Chol/HDL Ratio 4.4 (0-4.9); Cholesterol 145 mg/dL (< 200); Ethanol < 10 mg/dL (Less than 10); Glucose 713 mg/dL (70-105); HDL Cholesterol 33 mg/dL (40-59); LDL Cholesterol,Calculated 67 mg/dL (< 100); Osmolality,Calculated 296 (280-300); Potassium 4.9 mEq/L (3.5-5.1); Salicylate < 2.5 mg/dL (15.0-30.0); Sodium 126 mEq/L (136-145); Triglycerides 227 mg/dL (< 150); eGFR For African Americans > 60 (> 60); eGFR For Non-African Americans > 60 (> 60)
[2021-04-11] MEDS ORDERED: 0.9 % Sodium Chloride 2,000 ML ONE (17:08)
[2021-04-11] MEDS: 0.9 % Sodium Chloride 1,000 ML IVC SCH (17:17)
[2021-04-11] MEDS ORDERED: Insulin Human Regular 7 UNIT in 0.9 % Sodium Chloride 10 ML IV ONE (17:21)
[2021-04-11] MEDS ORDERED: *HR* Dextrose 50 % in Water (Vial) 50 ML VIAL IVP PRN ×2 (17:22→17:51)
[2021-04-11] MEDS ORDERED: D5% in 0.45% NACL 1,000 ML IVC PRN (17:51)
[2021-04-11] MEDS ORDERED: Insulin Regular, Human 100 UNIT/ML IV PRN (17:51)
[2021-04-11] MEDS ORDERED: D5% in 0.45% NACL w KCl 20 MEQ/1,000 ML MLS IVC PRN (17:51)
[2021-04-11 17:59] LABS: VBG HCO3 28 mEq/L (21-27); VBG PCO2 48 mmHg (41-51); VBG PH 7.38 pH Units (7.32-7.42); VBG PO2 109 mmHg (25-50)
[2021-04-11] MEDS ORDERED: Acetaminophen 325 MG TABLET PO PRN (18:01)
[2021-04-11] MEDS ORDERED: Naloxone 0.4 MG/ML INJ IVP PRN (18:01)
[2021-04-11] MEDS ORDERED: MOM Conc 10 ML UD.LIQ PO PRN (18:01)
[2021-04-11] MEDS ORDERED: Melatonin 3 MG TABLET PO PRN (18:01)
[2021-04-11] MEDS ORDERED: Ondansetron 4 MG/2 ML VIAL IVP PRN (18:01)
[2021-04-11] MEDS ORDERED: Mag Hydrox/Al Hydrox/Simeth 30 ML UDC PO PRN (18:01)
[2021-04-11] MEDS: Azithromycin 500 MG in 0.9 % Sodium Chloride 250 ML IVPB SCH (18:40)
[2021-04-11] MEDS: cefTRIAXone 1,000 MG in 0.9 % Sodium Chloride Mini Bag 100 ML IVPB SCH (18:45)
[2021-04-11 19:31] LABS: Estimated Average Glucose 401 mg/dl; Hemoglobin A1C 15.6 %
[2021-04-11] MEDS: 0.45 % Sodium Chloride w/KCl 20 MEQ/1,000 ML MLS IVC SCH (20:21)
[2021-04-11] MEDS: Nicotine 21 MG PATCH.TD24 TD SCH (21:34)
[2021-04-11 23:36] LABS: BUN/Creatinine Ratio 13 (6-26); Blood Urea Nitrogen 11 mg/dL (6-20); Calcium 8.4 mg/dL (8.6-10.3); Carbon Dioxide 23 mEq/L (23-29); Chloride 105 mEq/L (98-107); Glucose 68 mg/dL (70-105); Osmolality,Calculated 278 (280-300); Potassium 3.8 mEq/L (3.5-5.1); Sodium 135 mEq/L (136-145); eGFR For African Americans > 60 (> 60); eGFR For Non-African Americans > 60 (> 60)
[2021-04-11] MEDS ORDERED: D5% in Water 1,000 ML IVC PRN (23:46)
[2021-04-11] MEDS ORDERED: Dextrose Gel 15 GM/37.5 ML TUBE PO PRN ×2 (23:46)
[2021-04-12] MEDS ORDERED: Insulin DETEMIR 100 UNIT/ML X5UNITS SUBQ SCH (01:00)
[2021-04-12 03:24] LABS: Basophils # 0.1 K/mcL (0.0-0.2); Basophils % 0.4 %; Eosinophils # 0.2 K/mcL (0.0-0.6); Eosinophils % 1.7 %; Hematocrit 40.1 % (37.5-50.1); Immature Granulocytes % 0.3 % (0-4); Lymphocytes # 3.3 K/mcL (0.6-4.6); Lymphocytes % 25.7 %; Mean Corpuscular HGB Conc 33.7 g/dL (31.6-35.5); Mean Corpuscular Hemoglobin 30.5 pg (28.0-33.3); Mean Corpuscular Volume 90.5 fL (83.0-100.0); Mean Platelet Volume 11.1 fL (9.4-12.4); Monocytes # 0.5 K/mcL (0.0-1.3); Monocytes % 3.6 %; Neutrophils # 8.8 K/mcL (1.6-8.9); Platelet Count 381 K/mcL (140-400); Red Blood Count 4.43 M/mcL (4.19-5.50); Red Cell Distribution Width 11.9 % (11.5-14.5); Segmented Neutrophils % 68.3 %; White Blood Count 12.9 K/mcL (4.3-11.1)
[2021-04-12 03:26] LABS: Hemoglobin 13.5 g/dL (12.9-16.9)
[2021-04-12 03:46] LABS: BUN/Creatinine Ratio 13 (6-26); Blood Urea Nitrogen 11 mg/dL (6-20); Calcium 8.1 mg/dL (8.6-10.3); Carbon Dioxide 24 mEq/L (23-29); Chloride 101 mEq/L (98-107); Glucose 374 mg/dL (70-105); Osmolality,Calculated 291 (280-300); Potassium 3.8 mEq/L (3.5-5.1); Sodium 133 mEq/L (136-145); eGFR For African Americans > 60 (> 60); eGFR For Non-African Americans > 60 (> 60)
[2021-04-12 03:47] LABS: Magnesium 1.7 mg/dL (1.6-2.6); Phosphorous 3.2 mg/dL (2.7-4.5)
[2021-04-12 09:25] LABS: BUN/Creatinine Ratio 11 (6-26); Blood Urea Nitrogen 10 mg/dL (6-20); Calcium 8.6 mg/dL (8.6-10.3); Carbon Dioxide 26 mEq/L (23-29); Chloride 101 mEq/L (98-107); Glucose 422 mg/dL (70-105); Osmolality,Calculated 291 (280-300); Potassium 4.1 mEq/L (3.5-5.1); Sodium 132 mEq/L (136-145); eGFR For African Americans > 60 (> 60); eGFR For Non-African Americans > 60 (> 60)
[2021-04-12] MEDS: Insulin LISPRO 300 UNITS/3 ML VIAL SUBQ SCH ×7 (09:37→20:47)
[2021-04-12] MEDS: Nicotine 21 MG PATCH.TD24 TD SCH (09:38)
[2021-04-12 11:52] LABS: BUN/Creatinine Ratio 11 (6-26); Blood Urea Nitrogen 10 mg/dL (6-20); Calcium 8.6 mg/dL (8.6-10.3); Carbon Dioxide 25 mEq/L (23-29); Chloride 102 mEq/L (98-107); Glucose 296 mg/dL (70-105); Osmolality,Calculated 286 (280-300); Potassium 3.8 mEq/L (3.5-5.1); Sodium 133 mEq/L (136-145); eGFR For African Americans > 60 (> 60); eGFR For Non-African Americans > 60 (> 60)
[2021-04-12] MEDS: cefTRIAXone 1,000 MG in 0.9 % Sodium Chloride Mini Bag 100 ML IVPB SCH (18:02)
[2021-04-12] MEDS: Azithromycin 500 MG in 0.9 % Sodium Chloride 250 ML IVPB SCH (18:07)
[2021-04-12] MEDS: lisinopriL 20 MG TABLET PO SCH (18:10)
[2021-04-12] MEDS: 0.45 % Sodium Chloride w/KCl 20 MEQ/1,000 ML MLS IVC SCH (20:34)
[2021-04-12] MEDS: Insulin DETEMIR 100 UNIT/ML X5UNITS SUBQ SCH (20:48)
[2021-04-13 03:16] LABS: Basophils # 0.1 K/mcL (0.0-0.2); Basophils % 0.4 %; Eosinophils # 0.3 K/mcL (0.0-0.6); Eosinophils % 2.6 %; Hematocrit 41.3 % (37.5-50.1); Hemoglobin 14.4 g/dL (12.9-16.9); Immature Granulocytes % 0.2 % (0-4); Lymphocytes # 4.1 K/mcL (0.6-4.6); Lymphocytes % 33.4 %; Mean Corpuscular HGB Conc 34.9 g/dL (31.6-35.5); Mean Corpuscular Hemoglobin 31.2 pg (28.0-33.3); Mean Corpuscular Volume 89.4 fL (83.0-100.0); Mean Platelet Volume 10.6 fL (9.4-12.4); Monocytes # 0.5 K/mcL (0.0-1.3); Monocytes % 3.7 %; Neutrophils # 7.3 K/mcL (1.6-8.9); Platelet Count 391 K/mcL (140-400); Red Blood Count 4.62 M/mcL (4.19-5.50); Red Cell Distribution Width 11.9 % (11.5-14.5); Segmented Neutrophils % 59.7 %; White Blood Count 12.2 K/mcL (4.3-11.1)
[2021-04-13 03:40] LABS: Magnesium 1.7 mg/dL (1.6-2.6); Phosphorous 3.2 mg/dL (2.7-4.5)
[2021-04-13 05:24] LABS: Platelet Estimate Normal (Normal)
[2021-04-13] MEDS: Nicotine 21 MG PATCH.TD24 TD SCH (08:12)
[2021-04-13] MEDS: lisinopriL 20 MG TABLET PO SCH (08:12)
[2021-04-13] MEDS: Aspirin Enteric Coated 81 MG Tablet PO SCH (08:12)
[2021-04-13] MEDS: Insulin LISPRO 300 UNITS/3 ML VIAL SUBQ SCH ×7 (08:15→19:46)
[2021-04-13 11:35] LABS: BUN/Creatinine Ratio 11 (6-26); Blood Urea Nitrogen 11 mg/dL (6-20); Calcium 8.7 mg/dL (8.6-10.3); Carbon Dioxide 28 mEq/L (23-29); Chloride 104 mEq/L (98-107); Glucose 126 mg/dL (70-105); Osmolality,Calculated 287 (280-300); Potassium 3.7 mEq/L (3.5-5.1); Sodium 138 mEq/L (136-145); eGFR For African Americans > 60 (> 60); eGFR For Non-African Americans > 60 (> 60)
[2021-04-13] MEDS: cefTRIAXone 1,000 MG in 0.9 % Sodium Chloride Mini Bag 100 ML IVPB SCH (17:14)
[2021-04-13] MEDS: Azithromycin 500 MG in 0.9 % Sodium Chloride 250 ML IVPB SCH (17:15)
[2021-04-13] MEDS: Insulin DETEMIR 100 UNIT/ML X5UNITS SUBQ SCH (19:47)
[2021-04-14] MEDS: Insulin LISPRO 300 UNITS/3 ML VIAL SUBQ SCH ×6 (08:01→17:25)
[2021-04-14] MEDS: Aspirin Enteric Coated 81 MG Tablet PO SCH (08:02)
[2021-04-14] MEDS: lisinopriL 20 MG TABLET PO SCH (08:02)
[2021-04-14] MEDS: Nicotine 21 MG PATCH.TD24 TD SCH (08:02)
[2021-04-14 15:38] VITALS: BP 135/91; PULSE 56; TEMP 97.9; O2SAT 94
[2021-04-14 17:17] LABS: Adenovirus Not Detected (Not Detect); Bordetella Pertussis Not Detected (Not Detect); Chlamydophila pneumoniae Not Detected (Not Detect); Coronavirus 229E Not Detected (Not Detect); Coronavirus HKU1 Not Detected (Not Detect); Coronavirus NL63 Not Detected (Not Detect); Coronavirus OC43 Not Detected (Not Detect); Human Metapneumovirus Not Detected (Not Detect); Human Rhinovirus/Enterovirus DETECTED (Not Detect); Influenza A Subtype 2009 H1 Not Detected (Not Detect); Influenza B Not Detected (Not Detect); Mycoplasma pneumoniae Not Detected (Not Detect); Parainfluenza Virus 1 Not Detected (Not Detect); Parainfluenza Virus 2 Not Detected (Not Detect); Parainfluenza Virus 3 Not Detected (Not Detect); Parainfluenza Virus 4 Not Detected (Not Detect); Respiratory Syncytial Virus Not Detected (Not Detect); SARS-CoV-2 Not Detected (Not Detect)
[2021-04-14] MEDS ORDERED: Azithromycin 250 MG TABLET PO SCH (18:00)
[2021-04-14] MEDS ORDERED: Cefdinir 300 MG CAPSULE PO SCH (21:00)
== END 2021-04-14 17:52 ==
LOC: 2NENU 16:03 → EMEROOARM 16:03 → 2NENU 18:52
PROVIDERS: ADMIT Internal Medicine; ATTEND Internal Medicine

== ENCOUNTER 2021-04-14 17:41 | Inpatient (IN) ==
[2021-04-14] MEDS ORDERED: *HR* LORazepam 2 MG/ML VIAL IM PRN (17:48)
[2021-04-14] MEDS ORDERED: haloperidoL 5 MG TABLET PO PRN (17:48)
[2021-04-14] MEDS ORDERED: Haloperidol Lactate 5 MG/ML VIAL IM PRN (17:48)
[2021-04-14] MEDS ORDERED: *HR* LORazepam 1 MG TABLET PO PRN (17:48)
[2021-04-14] MEDS ORDERED: Acetaminophen 325 MG TABLET PO PRN (17:48)
[2021-04-14] MEDS ORDERED: hydrOXYzine pamoate 25 MG CAPSULE PO PRN (17:48)
[2021-04-14] MEDS ORDERED: Melatonin 3 MG TABLET PO PRN (17:55)
[2021-04-14] MEDS: Cefdinir 300 MG CAPSULE PO SCH (21:37)
[2021-04-14] MEDS: Azithromycin 250 MG TABLET PO SCH (21:37)
[2021-04-14] MEDS: Insulin DETEMIR 100 UNIT/ML X5UNITS SUBQ SCH (21:38)
[2021-04-14] MEDS: Clobetasol Propionate 0.05% 15 GM Cream Tube TP SCH (21:38)
[2021-04-14] MEDS: Latanoprost 2.5 ML BOTTLE BOTH EYES SCH (21:40)
[2021-04-15] MEDS: Aspirin Enteric Coated 81 MG Tablet PO SCH (09:17)
[2021-04-15] MEDS: Cefdinir 300 MG CAPSULE PO SCH ×2 (09:17→20:51)
[2021-04-15] MEDS: lisinopriL 20 MG TABLET PO SCH (09:18)
[2021-04-15] MEDS: Nicotine 21 MG PATCH.TD24 TD SCH ×2 (09:19→14:21)
[2021-04-15] MEDS: Clobetasol Propionate 0.05% 15 GM Cream Tube TP SCH ×2 (09:19→20:52)
[2021-04-15] MEDS: Insulin LISPRO 300 UNITS/3 ML VIAL SUBQ SCH ×3 (09:20→17:20)
[2021-04-15] MEDS: Azithromycin 250 MG TABLET PO SCH (20:51)
[2021-04-15] MEDS: QUEtiapine Fumarate 25 MG TABLET PO PRN (20:52)
[2021-04-15] MEDS: Latanoprost 2.5 ML BOTTLE BOTH EYES SCH (20:53)
[2021-04-15] MEDS: Insulin DETEMIR 100 UNIT/ML X5UNITS SUBQ SCH (20:56)
[2021-04-15] MEDS ORDERED: Insulin LISPRO 300 UNITS/3 ML VIAL SUBQ ONE (21:55)
[2021-04-16] MEDS ORDERED: *HR* Dextrose 50 % in Water (Vial) 50 ML VIAL IVP PRN (00:52)
[2021-04-16] MEDS ORDERED: Dextrose Gel 15 GM/37.5 ML TUBE PO PRN ×2 (00:52)
[2021-04-16] MEDS ORDERED: D5% in Water 1,000 ML IVC PRN (00:52)
[2021-04-16] MEDS: Insulin LISPRO 300 UNITS/3 ML VIAL SUBQ SCH ×5 (02:48→20:12)
[2021-04-16 03:17] LABS: Alanine Aminotransferase 27 Units/L (7-52); Albumin 3.5 g/dL (3.5-5.7); Albumin/Globulin Ratio 1.7 (1.1-2.2); Alkaline Phosphatase 65 Units/L (34-104); Aspartate Amino Transferase 15 Units/L (13-39); BUN/Creatinine Ratio 17 (6-26); Bilirubin,Total 0.2 mg/dL (0.3-1.0); Blood Urea Nitrogen 18 mg/dL (6-20); Calcium 8.8 mg/dL (8.6-10.3); Carbon Dioxide 26 mEq/L (23-29); Chloride 102 mEq/L (98-107); Globulin 2.1 g/dL (2.4-3.5); Glucose 397 mg/dL (70-105); Osmolality,Calculated 296 (280-300); Potassium 4.1 mEq/L (3.5-5.1); Sodium 134 mEq/L (136-145); Total Protein 5.6 g/dL (6.4-8.9); eGFR For African Americans > 60 (> 60); eGFR For Non-African Americans > 60 (> 60)
[2021-04-16] MEDS: Cefdinir 300 MG CAPSULE PO SCH ×2 (09:44→20:08)
[2021-04-16] MEDS: Nicotine 21 MG PATCH.TD24 TD SCH ×2 (09:44→09:52)
[2021-04-16] MEDS: lisinopriL 20 MG TABLET PO SCH (09:44)
[2021-04-16] MEDS: Aspirin Enteric Coated 81 MG Tablet PO SCH (09:44)
[2021-04-16] MEDS: Clobetasol Propionate 0.05% 15 GM Cream Tube TP SCH ×2 (10:31→20:10)
[2021-04-16] MEDS: Azithromycin 250 MG TABLET PO SCH (17:39)
[2021-04-16 19:27] LABS: Estimated Average Glucose 404 mg/dl; Hemoglobin A1C 15.7 %
[2021-04-16] MEDS: QUEtiapine Fumarate 25 MG TABLET PO PRN (20:08)
[2021-04-16] MEDS: Latanoprost 2.5 ML BOTTLE BOTH EYES SCH (20:09)
[2021-04-16] MEDS: Insulin DETEMIR 100 UNIT/ML X5UNITS SUBQ SCH (20:11)
[2021-04-17] MEDS: Insulin LISPRO 300 UNITS/3 ML VIAL SUBQ SCH ×4 (08:01→20:16)
[2021-04-17] MEDS: lisinopriL 20 MG TABLET PO SCH (08:02)
[2021-04-17] MEDS: Clobetasol Propionate 0.05% 15 GM Cream Tube TP SCH ×2 (08:03→20:15)
[2021-04-17] MEDS: Aspirin Enteric Coated 81 MG Tablet PO SCH (08:03)
[2021-04-17] MEDS: Nicotine 21 MG PATCH.TD24 TD SCH ×2 (08:04→12:07)
[2021-04-17] MEDS: Cefdinir 300 MG CAPSULE PO SCH ×2 (08:17→20:15)
[2021-04-17] MEDS ORDERED: Insulin DETEMIR 100 UNIT/ML X5UNITS SUBQ SCH (09:00)
[2021-04-17 14:21] LABS: BUN/Creatinine Ratio 16 (6-26); Blood Urea Nitrogen 19 mg/dL (6-20); Calcium 9.5 mg/dL (8.6-10.3); Carbon Dioxide 28 mEq/L (23-29); Chloride 101 mEq/L (98-107); Glucose 285 mg/dL (70-105); Osmolality,Calculated 297 (280-300); Potassium 4.3 mEq/L (3.5-5.1); Sodium 137 mEq/L (136-145); eGFR For African Americans > 60 (> 60); eGFR For Non-African Americans > 60 (> 60)
[2021-04-17] MEDS: Azithromycin 250 MG TABLET PO SCH (18:09)
[2021-04-17] MEDS: QUEtiapine Fumarate 100 MG TABLET PO PRN (20:15)
[2021-04-17] MEDS: Insulin DETEMIR 100 UNIT/ML X5UNITS SUBQ SCH (20:16)
[2021-04-17] MEDS: Latanoprost 2.5 ML BOTTLE BOTH EYES SCH (20:16)
[2021-04-18] MEDS: Nicotine 21 MG PATCH.TD24 TD SCH (08:13)
[2021-04-18] MEDS: Insulin LISPRO 300 UNITS/3 ML VIAL SUBQ SCH ×4 (08:14→20:25)
[2021-04-18] MEDS: Aspirin Enteric Coated 81 MG Tablet PO SCH (08:15)
[2021-04-18] MEDS: lisinopriL 20 MG TABLET PO SCH (08:15)
[2021-04-18] MEDS: Cefdinir 300 MG CAPSULE PO SCH ×2 (08:16→20:27)
[2021-04-18] MEDS: Clobetasol Propionate 0.05% 15 GM Cream Tube TP SCH ×2 (08:20→20:30)
[2021-04-18] MEDS: Insulin DETEMIR 100 UNIT/ML X5UNITS SUBQ SCH ×2 (08:26→20:26)
[2021-04-18 10:12] LABS: BUN/Creatinine Ratio 12 (6-26); Blood Urea Nitrogen 14 mg/dL (6-20); Calcium 9.2 mg/dL (8.6-10.3); Carbon Dioxide 31 mEq/L (23-29); Chloride 100 mEq/L (98-107); Glucose 314 mg/dL (70-105); Osmolality,Calculated 296 (280-300); Potassium 3.9 mEq/L (3.5-5.1); Sodium 137 mEq/L (136-145); eGFR For African Americans > 60 (> 60); eGFR For Non-African Americans > 60 (> 60)
[2021-04-18] MEDS: Azithromycin 250 MG TABLET PO SCH (17:27)
[2021-04-18] MEDS: Latanoprost 2.5 ML BOTTLE BOTH EYES SCH (20:25)
[2021-04-18] MEDS: QUEtiapine Fumarate 100 MG TABLET PO PRN (20:26)
[2021-04-18] MEDS: lamoTRIgine 25 MG TABLET PO SCH (20:27)
[2021-04-19] MEDS: Insulin LISPRO 300 UNITS/3 ML VIAL SUBQ SCH ×4 (08:17→20:18)
[2021-04-19] MEDS: Nicotine 21 MG PATCH.TD24 TD SCH (08:17)
[2021-04-19] MEDS: Aspirin Enteric Coated 81 MG Tablet PO SCH (08:19)
[2021-04-19] MEDS: Cefdinir 300 MG CAPSULE PO SCH ×2 (08:19→20:14)
[2021-04-19] MEDS: Clobetasol Propionate 0.05% 15 GM Cream Tube TP SCH ×2 (08:20→20:23)
[2021-04-19] MEDS: lisinopriL 20 MG TABLET PO SCH (08:20)
[2021-04-19] MEDS: Insulin DETEMIR 100 UNIT/ML X5UNITS SUBQ SCH ×2 (11:45→20:16)
[2021-04-19] MEDS: Azithromycin 250 MG TABLET PO SCH (18:02)
[2021-04-19] MEDS: QUEtiapine Fumarate 100 MG TABLET PO PRN (20:14)
[2021-04-19] MEDS: lamoTRIgine 25 MG TABLET PO SCH (20:14)
[2021-04-19] MEDS: Latanoprost 2.5 ML BOTTLE BOTH EYES SCH (20:14)
[2021-04-20] MEDS: Nicotine 21 MG PATCH.TD24 TD SCH (08:03)
[2021-04-20] MEDS: Insulin LISPRO 300 UNITS/3 ML VIAL SUBQ SCH ×4 (08:05→20:38)
[2021-04-20] MEDS: lisinopriL 20 MG TABLET PO SCH (08:06)
[2021-04-20] MEDS: Aspirin Enteric Coated 81 MG Tablet PO SCH (08:06)
[2021-04-20] MEDS: Insulin DETEMIR 100 UNIT/ML X5UNITS SUBQ SCH ×2 (09:18→20:35)
[2021-04-20] MEDS: Clobetasol Propionate 0.05% 15 GM Cream Tube TP SCH ×2 (09:18→20:34)
[2021-04-20] MEDS: Latanoprost 2.5 ML BOTTLE BOTH EYES SCH (20:35)
[2021-04-20] MEDS: QUEtiapine Fumarate 100 MG TABLET PO PRN (21:34)
[2021-04-20] MEDS: lamoTRIgine 25 MG TABLET PO SCH (21:34)
[2021-04-21] MEDS: Insulin LISPRO 300 UNITS/3 ML VIAL SUBQ SCH ×4 (08:18→20:36)
[2021-04-21] MEDS: Nicotine 21 MG PATCH.TD24 TD SCH (09:17)
[2021-04-21] MEDS: Aspirin Enteric Coated 81 MG Tablet PO SCH (09:17)
[2021-04-21] MEDS: lisinopriL 20 MG TABLET PO SCH (09:18)
[2021-04-21] MEDS: Insulin DETEMIR 100 UNIT/ML X5UNITS SUBQ SCH ×2 (09:22→20:35)
[2021-04-21] MEDS: Clobetasol Propionate 0.05% 15 GM Cream Tube TP SCH ×2 (16:13→20:37)
[2021-04-21] MEDS: Latanoprost 2.5 ML BOTTLE BOTH EYES SCH (20:37)
[2021-04-21] MEDS: QUEtiapine Fumarate 100 MG TABLET PO PRN (20:37)
[2021-04-21] MEDS: lamoTRIgine 25 MG TABLET PO SCH (20:39)
[2021-04-22] MEDS: Insulin LISPRO 300 UNITS/3 ML VIAL SUBQ SCH ×4 (07:57→20:33)
[2021-04-22] MEDS: Nicotine 21 MG PATCH.TD24 TD SCH (08:00)
[2021-04-22] MEDS: Insulin DETEMIR 100 UNIT/ML X5UNITS SUBQ SCH ×2 (08:00→20:32)
[2021-04-22] MEDS: Clobetasol Propionate 0.05% 15 GM Cream Tube TP SCH ×2 (08:00→20:31)
[2021-04-22] MEDS: lisinopriL 20 MG TABLET PO SCH (08:00)
[2021-04-22] MEDS: Aspirin Enteric Coated 81 MG Tablet PO SCH (10:03)
[2021-04-22] MEDS: Latanoprost 2.5 ML BOTTLE BOTH EYES SCH (20:30)
[2021-04-22] MEDS: QUEtiapine Fumarate 100 MG TABLET PO PRN (20:30)
[2021-04-22] MEDS: lamoTRIgine 25 MG TABLET PO SCH (20:30)
[2021-04-23] MEDS: Nicotine 21 MG PATCH.TD24 TD SCH (08:31)
[2021-04-23] MEDS: Insulin LISPRO 300 UNITS/3 ML VIAL SUBQ SCH ×2 (08:31→11:32)
[2021-04-23] MEDS: Aspirin Enteric Coated 81 MG Tablet PO SCH (08:32)
[2021-04-23] MEDS: Clobetasol Propionate 0.05% 15 GM Cream Tube TP SCH (08:33)
[2021-04-23] MEDS: lisinopriL 20 MG TABLET PO SCH (08:33)
[2021-04-23] MEDS: Insulin DETEMIR 100 UNIT/ML X5UNITS SUBQ SCH (08:34)
[2021-04-23 10:37] VITALS: BP 104/65; PULSE 52; TEMP 97; O2SAT 97
== END 2021-04-23 15:15 | disposition home or self-care (01) | DRG 753 ==
LOC: 1ANU 17:41
PROVIDERS: ADMIT Psychiatry & Neurology Psychiatry; ATTEND Psychiatry & Neurology Psychiatry

== ENCOUNTER 2022-06-02 23:05 | Observation (INO) ==
[2022-06-03 00:09] LABS: Basophils # 0.1 K/mcL (0.0-0.2); Basophils % 0.5 %; Eosinophils # 0.1 K/mcL (0.0-0.6); Eosinophils % 0.9 %; Hematocrit 49.9 % (37.5-50.1); Hemoglobin 16.8 g/dL (12.9-16.9); Immature Granulocytes % 0.3 % (0-4); Lymphocytes # 2.1 K/mcL (0.6-4.6); Lymphocytes % 16.6 %; Mean Corpuscular HGB Conc 33.7 g/dL (31.6-35.5); Mean Corpuscular Hemoglobin 30.9 pg (28.0-33.3); Mean Corpuscular Volume 91.7 fL (83.0-100.0); Mean Platelet Volume 10.5 fL (9.4-12.4); Monocytes # 0.8 K/mcL (0.0-1.3); Monocytes % 6.2 %; Neutrophils # 9.6 K/mcL (1.6-8.9); Platelet Count 510 K/mcL (140-400); Red Blood Count 5.44 M/mcL (4.19-5.50); Red Cell Distribution Width 12.4 % (11.5-14.5); Segmented Neutrophils % 75.5 %; White Blood Count 12.7 K/mcL (4.3-11.1)
[2022-06-03 00:20] LABS: Estimated Average Glucose 413 mg/dl
[2022-06-03 00:20] LABS: Bilirubin,Urine Negative (Negative); Blood,Urine Negative (Negative); Clarity,Urine Clear (Clear); Color,Urine Colorless (Yellow); Glucose,Urine (UA) >=1000 mg/dL (Normal); Ketones,Urine 20 mg/dL (Negative); Leukocyte Esterase,Urine Small (Negative); Mucus,Urine Few per lpf (None-Few); Nitrite,Urine Negative (Negative); Protein,Urine Negative (Neg-Trace); RBC,Urine 0-3 per hpf (0-3); Specific Gravity,Urine > 1.030 (1.010-1.025); Squamous Epithelial Cell,Urine Few per hpf (None-Few); Urobilinogen,Urine Normal (Normal)
[2022-06-03 00:26] LABS: Amphetamine Screen,Urine Negative ng/mL (Cutoff=1000); Barbiturate Screen,Urine Negative ng/mL (Cutoff=200); Benzodiazepines Screen,Urine Negative ng/mL (Cutoff=200); Cannabinoid Screen,Urine Negative ng/mL (Cutoff = 50); Cocaine Screen,Urine Positive ng/mL (Cutoff= 300); Opiate Screen,Urine Negative ng/mL (Cutoff=300); Phencyclidine Screen,Urine Negative ng/mL (Cutoff=25)
[2022-06-03 00:34] LABS: Acetaminophen < 10 mcg/mL (10-20); Alanine Aminotransferase 32 Units/L (7-52); Albumin 4.1 g/dL (3.5-5.7); Albumin/Globulin Ratio 1.5 (1.1-2.2); Alkaline Phosphatase 87 Units/L (34-104); Aspartate Amino Transferase 33 Units/L (13-39); BUN/Creatinine Ratio 10 (6-26); Bilirubin,Direct 0.1 mg/dL (0.0-0.2); Bilirubin,Indirect 0.4 mg/dL (0.0-1.0); Bilirubin,Total 0.5 mg/dL (0.3-1.0); Blood Urea Nitrogen 14 mg/dL (6-20); Calcium 9.5 mg/dL (8.6-10.3); Carbon Dioxide 24 mEq/L (23-29); Chloride 92 mEq/L (98-107); Chol/HDL Ratio 3.5 (0-4.9); Cholesterol 164 mg/dL (< 200); Ethanol < 10 mg/dL (Less than 10); Globulin 2.8 g/dL (2.4-3.5); Glucose 765 mg/dL (70-105); HDL Cholesterol 47 mg/dL (40-59); LDL Cholesterol,Calculated 80 mg/dL (< 100); Osmolality,Calculated 300 (280-300); Salicylate < 2.5 mg/dL (15.0-30.0); Sodium 126 mEq/L (136-145); Total Protein 6.9 g/dL (6.4-8.9); Triglycerides 184 mg/dL (< 150)
[2022-06-03 00:36] LABS: VBG HCO3 26 mEq/L (21-27); VBG PCO2 43 mmHg (41-51); VBG PH 7.38 pH Units (7.32-7.42); VBG PO2 123 mmHg (25-50)
[2022-06-03 00:46] LABS: Thyroid Stimulating Hormone 0.803 mcIU/mL (0.340-5.600)
[2022-06-03] MEDS ORDERED: Insulin Human Regular 10 UNIT in 0.9 % Sodium Chloride 10 ML IV ONE (00:47)
[2022-06-03] MEDS ORDERED: 0.9 % Sodium Chloride 1,000 ML IV ONE ×2 (00:47→07:04)
[2022-06-03 06:14] LABS: Influenza A PCR Negative (Negative); Influenza B PCR Negative (Negative); Resp. Syncytial Virus PCR Negative (Negative); SARS-CoV-2 by PCR (In House) Negative (Negative)
[2022-06-03] MEDS ORDERED: Insulin Human Regular 4 UNIT in 0.9 % Sodium Chloride 10 ML IV ONE (10:04)
[2022-06-03] MEDS ORDERED: Insulin Human Regular 5 UNIT in 0.9 % Sodium Chloride 10 ML IV ONE (12:31)
[2022-06-03] MEDS ORDERED: Insulin DETEMIR 100 UNIT/ML X5UNITS SUBQ ONE (15:15)
[2022-06-03] MEDS ORDERED: Naloxone 0.4 MG/ML INJ IVP PRN (16:19)
[2022-06-03] MEDS ORDERED: Dextrose Gel 15 GM/37.5 ML TUBE PO PRN ×2 (16:22)
[2022-06-03] MEDS ORDERED: D5% in Water 1,000 ML IVC PRN (16:22)
[2022-06-03] MEDS ORDERED: *HR* Dextrose 50 % in Water (Syg) 50 ML SYRINGE IVP PRN (16:22)
[2022-06-03] MEDS: Insulin LISPRO 300 UNITS/3 ML VIAL SUBQ SCH (17:20)
[2022-06-03] MEDS ORDERED: 0.9 % Sodium Chloride 1,000 ML IVC SCH (18:30)
[2022-06-03] MEDS ORDERED: Insulin DETEMIR 100 UNIT/ML X5UNITS SUBQ SCH (21:00)
[2022-06-03] MEDS ORDERED: Insulin LISPRO 300 UNITS/3 ML VIAL SUBQ SCH (21:00)
[2022-06-03] MEDS: lamoTRIgine 25 MG TABLET PO SCH (21:25)
[2022-06-03] MEDS: *HR* Heparin 5,000 UNIT/ML VIAL SQ SCH (21:26)
[2022-06-04] MEDS: *HR* Heparin 5,000 UNIT/ML VIAL SQ SCH ×3 (05:54→23:06)
[2022-06-04 08:15] LABS: Basophils # 0.1 K/mcL (0.0-0.2); Basophils % 0.5 %; Eosinophils # 0.2 K/mcL (0.0-0.6); Eosinophils % 2.3 %; Hematocrit 38.6 % (37.5-50.1); Immature Granulocytes % 0.2 % (0-4); Lymphocytes % 42.9 %; Mean Corpuscular HGB Conc 34.5 g/dL (31.6-35.5); Mean Corpuscular Hemoglobin 30.2 pg (28.0-33.3); Mean Corpuscular Volume 87.5 fL (83.0-100.0); Mean Platelet Volume 9.9 fL (9.4-12.4); Monocytes # 0.5 K/mcL (0.0-1.3); Monocytes % 5.2 %; Neutrophils # 4.6 K/mcL (1.6-8.9); Platelet Count 387 K/mcL (140-400); Red Blood Count 4.41 M/mcL (4.19-5.50); Red Cell Distribution Width 12.3 % (11.5-14.5); Segmented Neutrophils % 48.9 %; White Blood Count 9.4 K/mcL (4.3-11.1)
[2022-06-04 08:17] LABS: Hemoglobin 13.3 g/dL (12.9-16.9)
[2022-06-04] MEDS: Insulin DETEMIR 100 UNIT/ML X5UNITS SUBQ SCH ×2 (08:35→21:33)
[2022-06-04] MEDS: OLANZapine 10 MG TAB.RAPDIS PO SCH (08:35)
[2022-06-04] MEDS: Insulin LISPRO 300 UNITS/3 ML VIAL SUBQ SCH ×6 (08:35→17:16)
[2022-06-04] MEDS: Aspirin Enteric Coated 81 MG Tablet PO SCH (08:35)
[2022-06-04 08:36] LABS: BUN/Creatinine Ratio 12 (6-26); Blood Urea Nitrogen 12 mg/dL (6-20); Carbon Dioxide 29 mEq/L (23-29); Chloride 104 mEq/L (98-107); Glucose 229 mg/dL (70-105); Osmolality,Calculated 289 (280-300); Potassium 3.2 mEq/L (3.5-5.1); Sodium 136 mEq/L (136-145)
[2022-06-04] MEDS: lamoTRIgine 25 MG TABLET PO SCH (19:48)
[2022-06-05] MEDS: *HR* Heparin 5,000 UNIT/ML VIAL SQ SCH ×2 (06:21→18:06)
[2022-06-05] MEDS ORDERED: lisinopriL 5 MG TABLET PO SCH (09:00)
[2022-06-05] MEDS: Insulin LISPRO 300 UNITS/3 ML VIAL SUBQ SCH ×6 (09:32→18:06)
[2022-06-05] MEDS: OLANZapine 10 MG TAB.RAPDIS PO SCH (09:33)
[2022-06-05] MEDS: Aspirin Enteric Coated 81 MG Tablet PO SCH (09:33)
[2022-06-05] MEDS: Insulin DETEMIR 100 UNIT/ML X5UNITS SUBQ SCH (09:33)
[2022-06-05 12:30] VITALS: BP 104/61; PULSE 51; TEMP 97.4; O2SAT 96
== END 2022-06-05 18:42 | disposition home or self-care (01) ==
LOC: EMEROOARM 23:05 → 3ANU 23:05 → SUATTDRO 06-03 17:21 → 3ANU 06-03 19:45
PROVIDERS: ADMIT Internal Medicine; ATTEND Internal Medicine

== ENCOUNTER 2022-06-05 18:52 | Inpatient (IN) ==
[2022-06-05] MEDS ORDERED: *HR* LORazepam 1 MG TABLET PO PRN (19:52)
[2022-06-05] MEDS ORDERED: hydrOXYzine pamoate 25 MG CAPSULE PO PRN (19:52)
[2022-06-05] MEDS ORDERED: *HR* LORazepam 2 MG/ML VIAL IM PRN (19:52)
[2022-06-05] MEDS ORDERED: haloperidoL 5 MG TABLET PO PRN (19:52)
[2022-06-05] MEDS ORDERED: Acetaminophen 325 MG TABLET PO PRN (19:52)
[2022-06-05] MEDS ORDERED: Haloperidol Lactate 5 MG/ML VIAL IM PRN (19:52)
[2022-06-05] MEDS ORDERED: Ibuprofen 400 MG TABLET PO PRN (19:52)
[2022-06-05] MEDS ORDERED: traZODone 50 MG TABLET PO PRN (19:52)
[2022-06-05] MEDS ORDERED: Insulin DETEMIR 100 UNIT/ML X5UNITS SUBQ SCH (21:00)
[2022-06-05] MEDS ORDERED: D5% in Water 1,000 ML IVC PRN (22:10)
[2022-06-05] MEDS ORDERED: Dextrose Gel 15 GM/37.5 ML TUBE PO PRN ×2 (22:10)
[2022-06-05] MEDS ORDERED: *HR* Dextrose 50 % in Water (Syg) 50 ML SYRINGE IVP PRN (22:10)
[2022-06-05] MEDS: lamoTRIgine 25 MG TABLET PO SCH (23:06)
[2022-06-05] MEDS: Insulin DETEMIR 100 UNIT/ML X5UNITS SUBQ SCH (23:07)
[2022-06-06] MEDS: Insulin LISPRO 300 UNITS/3 ML VIAL SUBQ SCH ×3 (08:15→17:08)
[2022-06-06] MEDS: OLANZapine 10 MG TAB.RAPDIS PO SCH (09:01)
[2022-06-06] MEDS: lisinopriL 5 MG TABLET PO SCH (09:01)
[2022-06-06] MEDS: Aspirin Enteric Coated 81 MG Tablet PO SCH (09:02)
[2022-06-06] MEDS: Insulin DETEMIR 100 UNIT/ML X5UNITS SUBQ SCH ×2 (09:02→20:07)
[2022-06-06] MEDS: lamoTRIgine 25 MG TABLET PO SCH (20:06)
[2022-06-07] MEDS: Insulin LISPRO 300 UNITS/3 ML VIAL SUBQ SCH ×4 (08:25→22:07)
[2022-06-07] MEDS: Insulin DETEMIR 100 UNIT/ML X5UNITS SUBQ SCH ×2 (08:25→22:09)
[2022-06-07] MEDS: Aspirin Enteric Coated 81 MG Tablet PO SCH (08:43)
[2022-06-07] MEDS: OLANZapine 10 MG TAB.RAPDIS PO SCH (08:43)
[2022-06-07] MEDS: lisinopriL 5 MG TABLET PO SCH (08:43)
[2022-06-07] MEDS: lamoTRIgine 25 MG TABLET PO SCH (22:04)
[2022-06-08] MEDS: Insulin LISPRO 300 UNITS/3 ML VIAL SUBQ SCH ×4 (08:13→21:46)
[2022-06-08] MEDS: Aspirin Enteric Coated 81 MG Tablet PO SCH (08:15)
[2022-06-08] MEDS: lisinopriL 5 MG TABLET PO SCH (08:16)
[2022-06-08] MEDS: OLANZapine 10 MG TAB.RAPDIS PO SCH (08:16)
[2022-06-08] MEDS: Insulin DETEMIR 100 UNIT/ML X5UNITS SUBQ SCH ×2 (08:18→21:48)
[2022-06-08] MEDS: lamoTRIgine 25 MG TABLET PO SCH (21:47)
[2022-06-09] MEDS: Insulin LISPRO 300 UNITS/3 ML VIAL SUBQ SCH ×4 (07:59→20:31)
[2022-06-09] MEDS: Aspirin Enteric Coated 81 MG Tablet PO SCH (08:02)
[2022-06-09] MEDS: lisinopriL 5 MG TABLET PO SCH (08:02)
[2022-06-09] MEDS: OLANZapine 10 MG TAB.RAPDIS PO SCH (08:02)
[2022-06-09] MEDS: Insulin DETEMIR 100 UNIT/ML X5UNITS SUBQ SCH ×2 (08:32→20:58)
[2022-06-09] MEDS ORDERED: Dulaglutide [Trulicity] 0.75 MG/0.5 ML Pen.Injctr SUBQ SCH (20:06)
[2022-06-09] MEDS: lamoTRIgine 25 MG TABLET PO SCH (20:58)
[2022-06-09] MEDS: QUEtiapine Fumarate 100 MG TABLET PO PRN (21:01)
[2022-06-10] MEDS: Insulin LISPRO 300 UNITS/3 ML VIAL SUBQ SCH ×4 (08:14→21:02)
[2022-06-10] MEDS: Insulin DETEMIR 100 UNIT/ML X5UNITS SUBQ SCH ×2 (08:15→21:03)
[2022-06-10] MEDS: OLANZapine 10 MG TAB.RAPDIS PO SCH (08:18)
[2022-06-10] MEDS: Aspirin Enteric Coated 81 MG Tablet PO SCH (08:18)
[2022-06-10] MEDS: lisinopriL 5 MG TABLET PO SCH (10:17)
[2022-06-10] MEDS: lamoTRIgine 25 MG TABLET PO SCH (21:04)
[2022-06-10] MEDS: QUEtiapine Fumarate 100 MG TABLET PO PRN (21:04)
[2022-06-11] MEDS: Insulin LISPRO 300 UNITS/3 ML VIAL SUBQ SCH ×4 (08:06→19:51)
[2022-06-11] MEDS: OLANZapine 10 MG TAB.RAPDIS PO SCH (08:06)
[2022-06-11] MEDS: lisinopriL 5 MG TABLET PO SCH (08:06)
[2022-06-11] MEDS: Aspirin Enteric Coated 81 MG Tablet PO SCH (08:07)
[2022-06-11] MEDS: Insulin DETEMIR 100 UNIT/ML X5UNITS SUBQ SCH ×2 (08:09→19:52)
[2022-06-11] MEDS: lamoTRIgine 25 MG TABLET PO SCH (19:52)
[2022-06-11] MEDS: QUEtiapine Fumarate 100 MG TABLET PO PRN (20:01)
[2022-06-12] MEDS: Insulin DETEMIR 100 UNIT/ML X5UNITS SUBQ SCH ×2 (07:46→20:34)
[2022-06-12] MEDS: OLANZapine 10 MG TAB.RAPDIS PO SCH (07:47)
[2022-06-12] MEDS: Aspirin Enteric Coated 81 MG Tablet PO SCH (07:47)
[2022-06-12] MEDS: Insulin LISPRO 300 UNITS/3 ML VIAL SUBQ SCH ×3 (07:47→16:50)
[2022-06-12] MEDS: lisinopriL 5 MG TABLET PO SCH (07:47)
[2022-06-12] MEDS: lamoTRIgine 25 MG TABLET PO SCH (20:34)
[2022-06-13] MEDS: Insulin LISPRO 300 UNITS/3 ML VIAL SUBQ SCH ×3 (07:52→16:30)
[2022-06-13] MEDS: lisinopriL 5 MG TABLET PO SCH (08:33)
[2022-06-13] MEDS: Aspirin Enteric Coated 81 MG Tablet PO SCH (08:33)
[2022-06-13] MEDS: OLANZapine 10 MG TAB.RAPDIS PO SCH (08:33)
[2022-06-13] MEDS: Insulin DETEMIR 100 UNIT/ML X5UNITS SUBQ SCH ×2 (08:34→21:03)
[2022-06-13] MEDS: *HR* Metformin 500 MG TABLET PO SCH (08:41)
[2022-06-13] MEDS: lamoTRIgine 25 MG TABLET PO SCH (21:02)
[2022-06-13] MEDS: QUEtiapine Fumarate 100 MG TABLET PO PRN (21:02)
[2022-06-14] MEDS: Insulin LISPRO 300 UNITS/3 ML VIAL SUBQ SCH ×3 (07:41→16:30)
[2022-06-14] MEDS: *HR* Metformin 500 MG TABLET PO SCH (09:06)
[2022-06-14] MEDS: Aspirin Enteric Coated 81 MG Tablet PO SCH (09:06)
[2022-06-14] MEDS: lisinopriL 5 MG TABLET PO SCH (09:07)
[2022-06-14] MEDS: Insulin DETEMIR 100 UNIT/ML X5UNITS SUBQ SCH ×2 (09:07→20:38)
[2022-06-14] MEDS: OLANZapine 10 MG TAB.RAPDIS PO SCH (09:07)
[2022-06-14] MEDS: QUEtiapine Fumarate 100 MG TABLET PO PRN (20:38)
[2022-06-14] MEDS: lamoTRIgine 25 MG TABLET PO SCH (20:38)
[2022-06-15] MEDS: Insulin LISPRO 300 UNITS/3 ML VIAL SUBQ SCH ×3 (07:56→16:50)
[2022-06-15] MEDS: OLANZapine 10 MG TAB.RAPDIS PO SCH (08:41)
[2022-06-15] MEDS: Aspirin Enteric Coated 81 MG Tablet PO SCH (08:42)
[2022-06-15] MEDS: lisinopriL 5 MG TABLET PO SCH (08:42)
[2022-06-15] MEDS: Insulin DETEMIR 100 UNIT/ML X5UNITS SUBQ SCH (08:45)
[2022-06-15] MEDS: *HR* Metformin 500 MG TABLET PO SCH (08:49)
[2022-06-15 10:13] VITALS: BP 142/92; PULSE 72; TEMP 97.6; O2SAT 98
== END 2022-06-15 17:15 | disposition other institution (70) | DRG 751 ==
LOC: 1ANU 18:52
PROVIDERS: ADMIT Psychiatry & Neurology Forensic Psychiatry; ATTEND Psychiatry & Neurology Forensic Psychiatry